=== PATIENT | male | born 1945 | race Caucasian/White ===

== ENCOUNTER → 2021-01-06 03:05 | Outpatient (CLI) | payer MEDICARE, SELFPAY ==
[2021-01-07 01:26] LABS: SARS-CoV-2 RNA PCR Positive
== END ==
PROVIDERS: PCP Family Medicine Adolescent Medicine; Visit Provider Family Medicine Adolescent Medicine
DX: U07.1 COVID-19 (principal)
CPT/HCPCS: C9803; U0003; U0005

== ENCOUNTER 2021-01-13 07:08 | Inpatient (IN) | payer MEDICARE, SELFPAY ==
[2021-01-13] VITALS (15 sets, daily range): BP systolic 167–210; BP diastolic 79–110; PULSE 75–106; RESP 18–28; TEMP 36.6–37.3; O2SAT 89–100; BMI 27.7
--- NOTE | ~2021-01-13 | US_ITS ---
EXAMINATION: US retroperitoneal duplex ltd EXAM DATE: 01/16/2021 09:06 INDICATION: Hypertension. TECHNIQUE: Multiple grayscale and Doppler images of the kidneys and renal arteries were obtained. Co rrelation is made to kidney ultrasound 01/14/2021. FINDINGS: The aorta peak systolic velocity is 96 cm/s. Renal arteries interrogated in several segments from origin to hilum. RIGHT RENAL ARTERY Proximal segment (origin): 129 cm/s. Middle segment: 122 cm/s. Distal segment (hilum): 134 cm/s. LEFT RENAL ARTERY Proximal segment (origin): 153 cm/s. Middle segment: 155 cm/s. Distal segment (hilum): 131 cm/s. IMPRESSION: 1. Renal artery Doppler velocities within normal limits. Reviewed, dictated and finalized at location G.
--- NOTE | ~2021-01-13 | XR_ITS ---
XR chest 1V portable DATE: 01/13/2021 07:53 INDICATION: Shortness of breath, weakness TECHNIQUE: Portable AP chest on 01/13/2021 at 0742 hours COMPARISON: None FINDINGS: There are patchy consolidating infiltrates scattered in both lungs including upper and lowe r lung zones. No pleural effusion or pulmonary vascular congestion or pneumothorax. Size is likely within normal limits. There is degenerative spurring of the thoracic spine. IMPRESSION: Patchy consolidating infiltrates scattered in both lungs, suggestive of bilateral Covid p neumonia Reviewed, dictated and finalized at location A. IMPRESSION: Patchy consolidating infiltrates scattered in both lungs, suggestiv e of bilateral Covid pneumonia
--- NOTE | ~2021-01-13 | US_ITS ---
EXAMINATION: US renal BI DATE: 01/14/2021 15:24 INDICATION: Acute renal insufficiency TECHNIQUE: Multiple ultrasound grayscale images of the kidneys were obtained. COMPARISON: None. FINDINGS: The right kidney measures 12.2 x 5.6 x 6.4 cm. The left kidney measures 12.2 x 5.2 x 7.5 cm. The kidn eys demonstrate normal echogenicity. There is no hydronephrosis in either kidney. No stones identifi ed. The bladder is normal. IMPRESSION: 1. Normal kidneys without hydronephrosis. Reviewed, dictated and finalized at location B.
--- NOTE | 2021-01-13 07:26 | ECG_ITS ---
Measurements Intervals [place] Rate: 96 P: 39 OK: 125 QRS: -51 QRSD: 138 T: 42 QT: 363 QTc: 461 Interpretive Statements SINUS RHYTHM FREQUENT VENTRICULAR PREMATURE COMPLEXES LEFT AXIS DEVIATION RIGHT BUNDLE BRANCH BLOCK BASELINE ARTIFACT- I, II, III, AVR ABNORMAL ECG Electronically Signed On 01-13-2021 8:13:50 CDT by Sebastien Giron D.O.
--- NOTE | 2021-01-13 07:48 | ED.SOB ---
HPI - SOB/Dyspnea General Chief Complaint: Shortness of Breath/Dyspnea Stated Complaint: SOB-COVID + Time Seen by Provider: 01/13/21 07:33 Source: EMS Mode of arrival: EMS Limitations: clinical condition History of Present Illness HPI Narrative: 75-year-old male Here for cough and shortness of breath Patient states that he has been a little sick for 2 or 3 weeks 1 week ago it was suggested that he test for Covid and that was done here and was positive on January 06 He was doing okay until last night when he became more dyspneic and his cough became more severe He has not had high fevers or productive cough or vomiting and diarrhea He has had fatigue, malaise, muscle aches He does not think that he has any particular medical problems which he is aware He completed a 2 shot Covid vaccine series MD elicited complaint: shortness of breath and cough Related Data Allergies Allergy/AdvReac Type Severity Reaction Status Date / Time No Known Allergies Allergy Unverified 02/24/14 12:38 Review of Systems Review of Systems: All systems reviewed & are unremarkable except as noted in HPI and below Constitutional: Constitutional: Reports no additional constitutional complaints, Denies chills, Reports fatigue, Reports fever(s), Denies headache(s) and Reports weakness Eyes: Eyes: Reports no additional eye complaints and Denies change in vision ENT: Denies headache(s) and Denies sore throat Cardiovascular: Cardiovascular: Denies chest pain and Denies dyspnea Respiratory: Respiratory: Reports chest congestion, Reports cough and Reports dyspnea Gastrointestinal: Gastrointestinal: Denies abdominal pain, Denies diarrhea and Denies vomiting Genitourinary: Genitourinary: Denies dysuria and Denies urinary frequency Musculoskeletal: Musculoskeletal: Reports myalgias, Denies deformity, Denies arthralgias, Denies joint swelling and Denies numbness Integumentary/Breasts: Skin/Breast: Denies rash and Denies wounds Neurologic: Reports headache(s), Denies focal weakness and Denies numbness Psychiatric: Psychiatric: Reports no additional psychiatric complaints Endocrine: Endocrine: Reports no additional endocrine complaints Hematologic/Lymphatic: Hematologic/Lymphatic: Reports no additional hematologic/lymphatic complaints Allergic/Immunologic: Allergic/Immunologic: Reports no additional allergic/immunologic complaints PMFSH Social History Social History Smoking status: Never smoker Alcohol intake: never Exam Const: General: cooperative, alert and ill appearing Orientation/consciousness: patient oriented x3 (alert) HENMT: Head: normal to inspection, normocephalic and atraumatic Ears: external ears normal General nose exam: no epistaxis Mouth: Yes moist mucous membranes Eyes: Conjunctivae: conjunctivae normal EOM: EOMs intact bilaterally Neck: Neck: normal visual inspection, supple and no JVD Resp: Effort & Inspection: normal respiratory effort, not labored and tachypneic Auscultation: rales, rhonchi, no wheezes and other (BS =) Cardio: Rate: regular rate Rhythm: regular rhythm Heart sounds: no murmurs GI: GI Palp: Yes Soft to palpation and No Tenderness to palpation present (GI) Skin: General skin exam: normal color and no rashes or lesions noted Neuro: General: patient oriented x3 (alert) and moves all extremities Speech: normal speech Extrem: General: normal to inspection and no pedal edema Psych: Affect: normal affect Course Course Emergency Course: Pulse oximetry is hypoxic on room air but satisfactory on 4 L of oxygen X-ray consistent with fairly severe bilateral Covid pneumonia He received albuterol steroids and Lovenox, as well as an initial dose of doxycycline and ceftriaxone mostly because given the lengthy prodrome of his symptoms he could have some bacterial superinfection Discussed with Dr. Schulte for hospital admission Vital Signs
[2021-01-13 08:06] LABS: Basophils Absolute Auto 0.1 K/mm3 (0.0-0.1); Basophils Percent Auto 0.4 % (0.2-1.2); Eosinophils Absolute Auto 0.2 K/mm3 (0-0.3); Eosinophils Percent Auto 1.4 % (0-4.4); Hematocrit 32.8 % (42.0-52.0); Hemoglobin 10.5 g/dL (14.0-18.0); Immature Granulocyte Absolute 0.56 K/mm3 (0.00-0.031); Immature Granulocyte Percent A 3.3 % (0-0.5); Lymphocytes Absolute Auto 0.66 K/mm3 (0.9-3.2); Lymphocytes Percent Auto 3.9 % (18.3-44.2); Mean Corpuscular Volume 93.7 fl (80-100); Mean Platelet Volume 10.8 fl (7.4-10.4); Monocytes Absolute Auto 1.8 K/mm3 (0.1-0.6); Monocytes Percent Auto 10.8 % (2.6-8.5); Neutrophils Absolute Auto 13.5 K/mm3 (1.3-6.7); Neutrophils Percent Auto 80.2 % (45.5-73.1); Platelet Count Result 448 k/mm3 (150-375); Red Cell Distribution Width 13.5 % (11.5-14.5); White Blood Count 16.9 K/mm3 (4.5-10.0)
[2021-01-13 08:18] LABS: Anion Gap 7 mmol/L (8-16); Blood Urea Nitrogen 33 mg/dL (9-20); Calcium 8.7 mg/dL (8.4-10.2); Carbon Dioxide 24 mmol/L (22-30); Chloride 109 mmol/L (98-107); Estimated CRCL calculation 29 ml/min; Estimated Glomerular Filt Rate 27; Glucose 134 mg/dL (65-110); Lactate Dehydrogenase 864 U/L (313-618); Potassium 4.3 mmol/L (3.4-5.0); Sodium 140 mmol/L (137-145)
[2021-01-13 08:19] LABS: Lactic Acid Reflex 1.4 mmol/L (0.7-2.1)
[2021-01-13 08:24] LABS: Atypical Lymphocytes Present; Hypochromasia 1+ (NORMAL); Platelet Estimate Adequate (Adequate)
[2021-01-13 08:27] LABS: NT Pro B Type Natriuretic Pept 5610 pg/mL (5-100)
[2021-01-13] MEDS: ENOXAPARIN 100 MG/ML SYRINGE 90 MG SUB-Q (08:46)
[2021-01-13] MEDS: ALBUTEROL SULFATE (*SP) AEROSOL 1 PUFF 4 PUFF INHALATION ×3 (08:50→19:55)
--- NOTE | 2021-01-13 13:00 | PM.IMHP ---
H&P: HPI History of Present Illness Date/Time: 01/13/21 13:00 Chief Complaint: Cough and shortness of breath. Narrative: This is a very pleasant 75-year-old male with insulin-dependent type 2 diabetes mellitus, hypertension, and hyperlipidemia who presented to the emergency department earlier today for evaluation of cough and shortness of breath. He has not been feeling well for approximately two weeks or so with generalized malaise, fatigue, muscle aches, decreased appetite, and intermittent low-grade fever. He tested positive for COVID 19 on 01/06/2021 though he is uncertain where he would have been exposed as typically he and his are very careful when they go outside of the home and are compliant with wearing masks and avoiding crowds. However several weeks ago he went to a stock car race and he is wondering if he may have been exposed there. In any regard, he reports increasingly weakness as the days have gone on and his biggest complaint is that of frequent, severe coughing jags as well as shortness of breath. He has been taking [id number] cold and flu medications without much benefit. He has not taken any other medications and did not receive monoclonal antibodies. On arrival to the emergency department his SpO2 was 89% on room air and a chest x-ray showed bilateral consolidating infiltrates suggestive of bilateral COVID pneumonia, and he is being admitted in this setting. He denies high fever, headache, sinus congestion, rhinorrhea, otalgia, odynophagia, exertional chest pain, pleuritic pain, palpitations, vomiting, and diarrhea. Of note the patient and his both received the [employer] COVID vaccination series in September 2020. Review of Systems Review of Systems: Twelve systems were reviewed with pertinent positives and negatives as per HPI. He denies dysphagia and concerns for aspiration. No orthopnea, PND, or lower extremity edema. He has not been checking his glucose because he has just not been feeling well. His appetite has been very poor though he denies overt nausea. He denies anosmia and dysgeusia. He has been trying to drink Ensure at the very least. He has not noticed a significant change in urine output but is urine has been a bit darker than usual. He denies concerns for urinary retention. Except as documented, all other systems were reviewed and are negative. [facility] Past Medical History Medical History (Updated 01/13/21 @ 16:04 by Sharon Doan PA-C) Hyperlipidemia Hypertension Insulin dependent type 2 diabetes mellitus Surgical History Surgical History (Updated 01/13/21 @ 15:58 by Sharon Doan PA-C) History of appendectomy History of colonoscopy (08/04/15) Revealed internal hemorrhoids. Family History Family History (Updated 01/13/21 @ 15:58 by Sharon Doan PA-C) Other Diabetes mellitus Hypertension Social History Social History (Updated 01/13/21 @ 16:19 by Sharon Doan PA-C) Social History: The patient is and lives with his in [place]. 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 Lifelong nonsmoker. No alcohol or illicit substance use. He designates his , Denise Chen, as his surrogate decision maker. Meds Home Medications and Allergies Allergies Allergy/AdvReac Type Severity Reaction Status Date / Time No Known Allergies Allergy Unverified 02/24/14 12:38 Vital Signs Vital Signs - 24 hr 01/13/21 07:12 01/13/21 07:15 01/13/21 07:16 Temperature 99.1 F Pulse Rate 101 H 103 H Respiratory Rate 28 H Blood Pressure 167/100 H Pulse Oximetry 89 L 95 01/13/21 09:22 01/13/21 10:41 01/13/21 13:01 Temperature 98.8 F Pulse Rate 88 90 80 Respiratory Rate 26 H 28 H 18 Blood Pressure 196/84 H 185/81 H 194/92 H Pulse Oximetry 98 100 99 01/13/21 15:04 Temperature Pulse Rate 76 Respiratory Rate 20 Blood Pressure 193/91 H Pulse Oximetry 100 Exam Narrative: General: Moderately ill-appearing elderly m
[2021-01-13] MEDS: LACTATED RINGERS 1,000 ML 50 ML IV CONT (13:17)
[2021-01-13 16:50] LABS: Prothrombin Time 12.7 Seconds (11.1-14.7)
[2021-01-13 16:57] LABS: Alanine Aminotransferase 55 U/L (4-50); Anion Gap 11 mmol/L (8-16); Blood Urea Nitrogen 34 mg/dL (9-20); Calcium 8.9 mg/dL (8.4-10.2); Carbon Dioxide 23 mmol/L (22-30); Chloride 105 mmol/L (98-107); Estimated CRCL calculation 29 ml/min; Estimated Glomerular Filt Rate 27; Glucose 241 mg/dL (65-110); Potassium 4.6 mmol/L (3.4-5.0); Sodium 139 mmol/L (137-145)
[2021-01-13 17:00] LABS: Alanine Aminotransferase 54 U/L (4-50); Albumin Level 3.4 g/dL (3.5-5.1); Alkaline Phosphatase 152 U/L (38-126); Aspartate Amino Transferase 44 U/L (17-59); Bilirubin,Total 0.4 mg/dL (0.2-1.3)
[2021-01-13] MEDS: hydrALAZINE HCL 20 MG/ML VIAL 10 MG IV PUSH (17:01)
[2021-01-13 17:11] LABS: Glucose Point of Care 236 mg/dl (65-105)
[2021-01-13 17:12] LABS: CRP 22.2 mg/dL (<1.0)
[2021-01-13] MEDS: INSULIN ASPART (*BKC) 100 UNITS/ML SUB-Q (17:24)
[2021-01-13 17:52] LABS: Procalcitonin 0.3 ng/mL
[2021-01-13 18:26] LABS: Creatine Kinase 244 U/L (55-170)
[2021-01-13] MEDS: METOPROLOL TARTRATE 50 MG TAB PO (18:27)
[2021-01-13 21:02] LABS: Ferritin > 2000.00 ng/mL (11.1-264)
[2021-01-13] MEDS: guaiFENesin 600 MG/DEXTROMETHORPHAN 30 MG SR TAB 12 HR 1 TAB PO (21:22)
[2021-01-13 21:43] LABS: Glucose Point of Care 337 mg/dl (65-105)
[2021-01-13] MEDS: INSULIN ASPART (*BKC) 100 UNITS/ML 6 UNITS SUB-Q (22:57)
[2021-01-13] MEDS: amLODIPine BESYLATE 5 MG TABLET PO (22:57)
[2021-01-13 23:08] LABS: Sodium Urine Random 74 meq/L
[2021-01-13 23:12] LABS: Urea Random Urine 635 MG/DL
[2021-01-13 23:27] LABS: Creatinine Urine 137.5 mg/dL
[2021-01-14] VITALS (13 sets, daily range): BP systolic 159–225; BP diastolic 80–113; PULSE 63–98; RESP 18–21; TEMP 36.2–36.7; O2SAT 91–99
[2021-01-14 06:45] LABS: Hematocrit 30.1 % (42.0-52.0); Hemoglobin 9.6 g/dL (14.0-18.0); Mean Corpuscular HGB Conc 31.9 g/dl (32-36); Mean Corpuscular Hemoglobin 29.5 pg (26-34); Mean Corpuscular Volume 92.6 fl (80-100); Mean Platelet Volume 11.3 fl (7.4-10.4); Platelet Count Result 479 k/mm3 (150-375); Red Blood Count 3.25 M/mm3 (4.6-6.20); Red Cell Distribution Width 13.4 % (11.5-14.5); White Blood Count 12.1 K/mm3 (4.5-10.0)
[2021-01-14 06:59] LABS: Alanine Aminotransferase 45 U/L (4-50); Albumin Level 2.9 g/dL (3.5-5.1); Alkaline Phosphatase 120 U/L (38-126); Anion Gap 5 mmol/L (8-16); Aspartate Amino Transferase 37 U/L (17-59); Bilirubin,Total 0.3 mg/dL (0.2-1.3); Blood Urea Nitrogen 39 mg/dL (9-20); Calcium 8.4 mg/dL (8.4-10.2); Carbon Dioxide 25 mmol/L (22-30); Chloride 108 mmol/L (98-107); Estimated CRCL calculation 29 ml/min; Estimated Glomerular Filt Rate 28; Glucose 226 mg/dL (65-110); Magnesium 1.8 mg/dL (1.6-2.3); Potassium 4.6 mmol/L (3.4-5.0); Sodium 138 mmol/L (137-145)
[2021-01-14] MEDS: LACTATED RINGERS 1,000 ML 100 ML IV CONT ×2 (07:11→14:41)
[2021-01-14 07:24] LABS: Hemoglobin A1C 8.7 % (<5.7)
[2021-01-14 08:10] LABS: Glucose Point of Care 218 mg/dl (65-105)
[2021-01-14] MEDS: INSULIN ASPART (*BKC) 100 UNITS/ML SUB-Q ×3 (08:22→17:21)
[2021-01-14] MEDS: INSULIN GLARGINE (*BKC) 100 UNITS/ML 50 UNITS SUB-Q (08:22)
[2021-01-14] MEDS: ENOXAPARIN 40 MG/0.4 ML SYRINGE SUB-Q (08:24)
[2021-01-14] MEDS: METOPROLOL TARTRATE 50 MG TAB PO ×2 (08:25→22:00)
[2021-01-14] MEDS: ATORVASTATIN 20 MG TABLET PO (08:25)
[2021-01-14] MEDS: guaiFENesin 600 MG/DEXTROMETHORPHAN 30 MG SR TAB 12 HR 1 TAB PO ×2 (08:25→22:12)
[2021-01-14] MEDS: ALBUTEROL SULFATE (*SP) AEROSOL 1 PUFF 4 PUFF INHALATION ×3 (08:35→19:42)
--- NOTE | 2021-01-14 11:32 | P.PNIM_ITS ---
Progress Note: A&P Assessment and Plan (1) Acute respiratory failure with hypoxia: Code(s): J96.01 - Acute respiratory failure with hypoxia Status: Acute Assessment and Plan: Secondary to COVID-19 pneumonia * Noted to be hypoxic at 89% on presentation. He was started on 3 L supplemental O2 * Has been weaned to 1 L and O2 sats are remaining stable * Continue with supplemental O2 as needed. Goal saturation 92% or above. Wean to goal. (2) COVID-19: Code(s): U07.1 - COVID-19 Status: Acute Assessment and Plan: Positive COVID test on 01/06/2021. CXR showed bilateral pneumonia * Initiate IV dexamethasone * He is not a candidate for remdesivir at this time due to decreased GFR. * Supportive care to include bronchodilators, expectorants, antipyretics, incentive spirometry * Supplemental O2 as described above * Trend acute phase reactants * Continue isolation precautions * He completed Pfizer vaccination in August 2020 (3) Bilateral pneumonia: Code(s): J18.9 - Pneumonia, unspecified organism Status: Acute Assessment and Plan: Given duration of symptoms and leukocytosis, continent bacterial pneumonia con sidered * Continue IV ceftriaxone and doxycycline * Sputum culture has been ordered, though cough is nonproductive * Blood cultures pending * Leukocytosis improving (4) Acute kidney injury: Code(s): N17.9 - Acute kidney failure, unspecified Status: Acute Assessment and Plan: Creatinine elevated at 2.4 on presentation. No prior labs to establish baseline. * Likely pre renal given dehydration from poor p.o. intake. He is being cautiously rehydrated with IV fluids given his bilateral pneumonia * No evidence of urinary retention on bladder scan * Lisinopril and metformin on hold. Avoid additional nephrotoxic medications * Monitor strict intake and output * Minimal improvement in creatinine following gentle IV fluid rehydration. Will obtain renal ultrasound for further evaluation * Consider nephrology consultation if no further improvement (5) Insulin dependent type 2 diabetes mellitus: Code(s): E11.9 - Type 2 diabetes mellitus without complications; Z79.4 - prison (current) use of insulin Status: Acute Assessment and Plan: A1c is 8.7. * Continue Accu-Cheks, sliding scale insulin, and hypoglycemic protocol * Metformin a hold as above due to IRASEMA * Continue home Lantus, 50 units * Monitor blood sugar closely given IV steroids, adjust regimen as needed (6) Hypertension: Code(s): I10 - Essential (primary) hypertension Status: Acute Assessment and Plan: Blood pressures have been quite elevated, up to 225/100. Blood pressures have been quite fluctuant. Last BP was 159/82 * He reports feeling quite anxious and this may be contributing * He was noted to be orthostatic today, though he is asymptomatic. * Repeat orthostatics this afternoon * Continue with metoprolol tartrate 50 mg b.i.d. * Lisinopril on hold due to IRASEMA * He will likely need additional antihypertensive agent. Will reassess this afternoon following repeat orthostatic blood pressures (7) Hyperlipidemia: Code(s): E78.5 - Hyperlipidemia, unspecified Status: Acute Assessment and Plan: LFTs reviewed and are within normal limits * Continue atorvastatin Subjective Date/time seen: 01/14/21 11:32 Interval history: Date of service: 01/14/2021 Vinayak Chen is a 75-year-old male
--- NOTE | 2021-01-14 11:32 | PM.IMPN ---
Progress Note: A&P Assessment and Plan (1) Acute respiratory failure with hypoxia: Code(s): J96.01 - Acute respiratory failure with hypoxia Status: Acute Assessment and Plan: Secondary to COVID-19 pneumonia Noted to be hypoxic at 89% on presentation. He was started on 3 L supplemental O2 Has been weaned to 1 L and O2 sats are remaining stable Continue with supplemental O2 as needed. Goal saturation 92% or above. Wean to goal. (2) COVID-19: Code(s): U07.1 - COVID-19 Status: Acute Assessment and Plan: Positive COVID test on 01/06/2021. CXR showed bilateral pneumonia Initiate IV dexamethasone He is not a candidate for remdesivir at this time due to decreased GFR. Supportive care to include bronchodilators, expectorants, antipyretics, incentive spirometry Supplemental O2 as described above Trend acute phase reactants Continue isolation precautions He completed Pfizer vaccination in August 2020 (3) Bilateral pneumonia: Code(s): J18.9 - Pneumonia, unspecified organism Status: Acute Assessment and Plan: Given duration of symptoms and leukocytosis, continent bacterial pneumonia considered Continue IV ceftriaxone and doxycycline Sputum culture has been ordered, though cough is nonproductive Blood cultures pending Leukocytosis improving (4) Acute kidney injury: Code(s): N17.9 - Acute kidney failure, unspecified Status: Acute Assessment and Plan: Creatinine elevated at 2.4 on presentation. No prior labs to establish baseline. Likely pre renal given dehydration from poor p.o. intake. He is being cautiously rehydrated with IV fluids given his bilateral pneumonia No evidence of urinary retention on bladder scan Lisinopril and metformin on hold. Avoid additional nephrotoxic medications Monitor strict intake and output Minimal improvement in creatinine following gentle IV fluid rehydration. 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 Continue Accu-Cheks, sliding scale insulin, and hypoglycemic protocol Metformin a hold as above due to IRASEMA Continue home Lantus, 50 units Monitor blood sugar closely given IV steroids, adjust regimen as needed (6) Hypertension: Code(s): I10 - Essential (primary) hypertension Status: Acute Assessment and Plan: Blood pressures have been quite elevated, up to 225/100. Blood pressures have been quite fluctuant. Last BP was 159/82 He reports feeling quite anxious and this may be contributing He was noted to be orthostatic today, though he is asymptomatic. Repeat orthostatics this afternoon Continue with metoprolol tartrate 50 mg b.i.d. Lisinopril on hold due to IRASEMA He will likely need additional antihypertensive agent. Will reassess this afternoon following repeat orthostatic blood pressures (7) Hyperlipidemia: Code(s): E78.5 - Hyperlipidemia, unspecified Status: Acute Assessment and Plan: LFTs reviewed and are within normal limits Continue atorvastatin Subjective Date/time seen: 01/14/21 11:32 Interval history: Date of service: 01/14/2021 Vinayak Chen is a 75-year-old male with a history of hypertension, type 2 diabetes mellitus, hyperlipidemia who is seen in follow-up for COVID-19 pneumonia. He is not noticing any improvement today. He continues to complain of persistent cough. Reports his cough is dry. He has no sputum production. He reports this cough has been continuing for 2 weeks. He has tried multiple hxhk-xij-kzhyjhn cough remedies with no improvement whatsoever. He also endorses NAIR. Denies conversational dyspnea. Denies orthopnea
[2021-01-14] MEDS: polyethylene glycoL 3350 17 GM POWD.PACK PO (11:38)
[2021-01-14 12:17] LABS: Glucose Point of Care 250 mg/dl (65-105)
[2021-01-14] MEDS: DEXAMETHASONE SOD PHOS INJ 4 MG/ML VIAL 6 MG IV PUSH (12:46)
--- NOTE | 2021-01-14 13:12 | PCRCNOTE ---
Window of time for administration has passed. See next scheduled administration.
[2021-01-14] MEDS: amLODIPine BESYLATE 5 MG TABLET PO (17:21)
[2021-01-14 17:56] LABS: Glucose Point of Care 278 mg/dl (65-105)
[2021-01-14] MEDS: DOCUSATE SODIUM 100 MG CAPSULE PO (22:12)
[2021-01-14 22:24] LABS: Glucose Point of Care 429 mg/dl (65-105)
--- NOTE | 2021-01-14 22:37 | PC.NURSE ---
Patient Blood glucose of 429. Call place to Sharon Doan. Telephone order read back of 8 units of Novolog to be administered
[2021-01-14] MEDS: INSULIN ASPART (*BKC) 100 UNITS/ML 8 UNITS SUB-Q (22:52)
[2021-01-15] VITALS (11 sets, daily range): BP systolic 148–191; BP diastolic 66–95; PULSE 62–100; RESP 16–20; TEMP 35.8–37.2; O2SAT 90–98
[2021-01-15] MEDS: hydrALAZINE HCL 20 MG/ML VIAL 10 MG IV PUSH (01:04)
[2021-01-15] MEDS: BENZOCAINE/MENTHOL (*BKC) 18 EA LOZENGE 1 LOZENGE PO ×4 (01:04→21:37)
[2021-01-15] MEDS: LACTATED RINGERS 1,000 ML 100 ML IV CONT ×2 (01:10→12:25)
[2021-01-15 06:42] LABS: Hematocrit 29.4 % (42.0-52.0); Hemoglobin 9.6 g/dL (14.0-18.0); Mean Corpuscular HGB Conc 32.7 g/dl (32-36); Mean Corpuscular Hemoglobin 29.7 pg (26-34); Mean Platelet Volume 10.9 fl (7.4-10.4); Platelet Count Result 620 k/mm3 (150-375); Red Blood Count 3.23 M/mm3 (4.6-6.20); Red Cell Distribution Width 13.3 % (11.5-14.5); White Blood Count 13.1 K/mm3 (4.5-10.0)
[2021-01-15 06:57] LABS: Alanine Aminotransferase 51 U/L (4-50); Alkaline Phosphatase 118 U/L (38-126); Anion Gap 7 mmol/L (8-16); Aspartate Amino Transferase 46 U/L (17-59); Bilirubin,Total 0.5 mg/dL (0.2-1.3); Blood Urea Nitrogen 49 mg/dL (9-20); CRP 3.8 mg/dL (<1.0); Calcium 8.5 mg/dL (8.4-10.2); Carbon Dioxide 24 mmol/L (22-30); Chloride 105 mmol/L (98-107); Estimated CRCL calculation 33 ml/min; Estimated Glomerular Filt Rate 33; Glucose 250 mg/dL (65-110); Lactate Dehydrogenase 859 U/L (313-618); Potassium 4.8 mmol/L (3.4-5.0); Sodium 136 mmol/L (137-145)
[2021-01-15] MEDS: INSULIN ASPART (*BKC) 100 UNITS/ML SUB-Q ×6 (07:58→17:05)
[2021-01-15 07:59] LABS: Glucose Point of Care 219 mg/dl (65-105)
[2021-01-15] MEDS: INSULIN GLARGINE (*BKC) 100 UNITS/ML 50 UNITS SUB-Q (08:00)
[2021-01-15] MEDS: ENOXAPARIN 40 MG/0.4 ML SYRINGE SUB-Q (08:05)
[2021-01-15] MEDS: DEXAMETHASONE SOD PHOS INJ 4 MG/ML VIAL 6 MG IV PUSH (08:06)
[2021-01-15] MEDS: guaiFENesin 600 MG/DEXTROMETHORPHAN 30 MG SR TAB 12 HR 1 TAB PO ×2 (08:07→20:34)
[2021-01-15] MEDS: ATORVASTATIN 20 MG TABLET PO (08:07)
[2021-01-15] MEDS: DOCUSATE SODIUM 100 MG CAPSULE PO ×2 (08:07→20:35)
[2021-01-15] MEDS: METOPROLOL TARTRATE 50 MG TAB PO ×2 (08:08→20:36)
[2021-01-15] MEDS: ALBUTEROL SULFATE (*SP) AEROSOL 1 PUFF 4 PUFF INHALATION ×4 (08:27→22:07)
[2021-01-15] MEDS: amLODIPine BESYLATE 5 MG TABLET 10 MG PO (09:03)
[2021-01-15 12:05] LABS: Glucose Point of Care 303 mg/dl (65-105)
--- NOTE | 2021-01-15 13:47 | P.PNIM_ITS ---
Progress Note: A&P Assessment and Plan (1) Acute respiratory failure with hypoxia: Code(s): J96.01 - Acute respiratory failure with hypoxia Status: Acute Assessment and Plan: Secondary to COVID-19 pneumonia * Noted to be hypoxic at 89% on presentation. He was started on 3 L supplemental O2 but has been weaned to room air and is maintaining adequate O2 saturations * Continue with supplemental O2 as needed. Goal saturation 92% or above. Wean to goal. (2) COVID-19: Code(s): U07.1 - COVID-19 Status: Acute Assessment and Plan: Positive COVID test on 01/06/2021. CXR showed bilateral pneumonia * Continue IV dexamethasone, started on 01/14/2021 * Remdesivir not initiated on presentation due to low GFR. Not indicated at this time as he has no O2 requirements * Supportive care to include bronchodilators, expectorants, antipyretics, incentive spirometry * Supplemental O2 as described above * Trend acute phase reactants * Continue isolation precautions * He completed Pfizer vaccination in August 2020 (3) Bilateral pneumonia: Code(s): J18.9 - Pneumonia, unspecified organism Status: Acute Assessment and Plan: Given duration of symptoms and leukocytosis, concomitant bacterial pneumonia considered * Continue IV ceftriaxone and doxycycline * Sputum culture is pending * Blood cultures pending; preliminary cultures with no growth today * Leukocytosis improved, however has increased again with addition of IV steroids (4) Acute on chronic kidney failure: Code(s): N17.9 - Acute kidney failure, unspecified; N18.9 - Chronic kidney disease, unspecified Status: Acute Assessment and Plan: Creatinine elevated at 2.4 on presentation. He reported no history of CKD, but I spoke with his PCP office today and his last creatinine in October 2019 was 2.18 * Likely pre renal given dehydration from poor p.o. intake. He has been cautiously rehydrated with IV fluids given his bilateral pneumonia * No evidence of urinary retention on bladder scan * Renal ultrasound showed normal kidneys without hydronephrosis * After speaking with PCP office today, it appears he is back to his baseline renal function. Creatinine is 2.0 today. Because of this, will discontinue IV fluids as he has been adequately rehydrated and is tolerating p.o. intake. * Continue to monitor renal function closely. Renally dose medications and avoid nephrotoxins (5) Insulin dependent type 2 diabetes mellitus: Code(s): E11.9 - Type 2 diabetes mellitus without complications; Z79.4 - ocean transportation intermediary (current) use of insulin Status: Acute Assessment and Plan: A1c is 8.7. Blood sugars have been elevated above target secondary to IV steroids * Continue Accu-Cheks, sliding scale insulin, and hypoglycemic protocol * Continue home Lantus, 50 units * Added 5 units Novolog with meals for improved glycemic control while on steroids * Monitor blood sugar closely given IV steroids, adjust regimen as needed (6) Hypertension: Code(s): I10 - Essential (primary) hypertension Status: Acute Assessment and Plan: Blood pressures have been quite elevated, up to 225/100 and have been quite fluctuant. Overall, slowly improving. Last BP 168/78 * He was noted to be orthostatic yesterday though remained asymptomatic. Continue to monitor orthostatic vital signs * Continue with metoprolol tartrate 50 mg b.i.d. * Amlodipine increased to 10 mg * Lisinopril was on hold due to IRASEMA, but will resume at this point as
--- NOTE | 2021-01-15 13:47 | PM.IMPN ---
Progress Note: A&P Assessment and Plan (1) Acute respiratory failure with hypoxia: Code(s): J96.01 - Acute respiratory failure with hypoxia Status: Acute Assessment and Plan: Secondary to COVID-19 pneumonia Noted to be hypoxic at 89% on presentation. He was started on 3 L supplemental O2 but has been weaned to room air and is maintaining adequate O2 saturations Continue with supplemental O2 as needed. Goal saturation 92% or above. Wean to goal. (2) COVID-19: Code(s): U07.1 - COVID-19 Status: Acute Assessment and Plan: Positive COVID test on 01/06/2021. CXR showed bilateral pneumonia Continue IV dexamethasone, started on 01/14/2021 Remdesivir not initiated on presentation due to low GFR. Not indicated at this time as he has no O2 requirements Supportive care to include bronchodilators, expectorants, antipyretics, incentive spirometry Supplemental O2 as described above Trend acute phase reactants Continue isolation precautions He completed Pfizer vaccination in August 2020 (3) Bilateral pneumonia: Code(s): J18.9 - Pneumonia, unspecified organism Status: Acute Assessment and Plan: Given duration of symptoms and leukocytosis, concomitant bacterial pneumonia considered Continue IV ceftriaxone and doxycycline Sputum culture is pending Blood cultures pending; preliminary cultures with no growth today Leukocytosis improved, however has increased again with addition of IV steroids (4) Acute on chronic kidney failure: Code(s): N17.9 - Acute kidney failure, unspecified; N18.9 - Chronic kidney disease, unspecified Status: Acute Assessment and Plan: Creatinine elevated at 2.4 on presentation. He reported no history of CKD, but I spoke with his PCP office today and his last creatinine in October 2019 was 2.18 Likely pre renal given dehydration from poor p.o. intake. He has been cautiously rehydrated with IV fluids given his bilateral pneumonia No evidence of urinary retention on bladder scan Renal ultrasound showed normal kidneys without hydronephrosis After speaking with PCP office today, it appears he is back to his baseline renal function. Creatinine is 2.0 today. Because of this, will discontinue IV fluids as he has been adequately rehydrated and is tolerating p.o. intake. Continue to monitor renal function closely. 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 Blood sugars have been elevated above target secondary to IV steroids Continue Accu-Cheks, sliding scale insulin, and hypoglycemic protocol Continue home Lantus, 50 units Added 5 units Novolog with meals for improved glycemic control while on steroids Monitor blood sugar closely given IV steroids, adjust regimen as needed (6) Hypertension: Code(s): I10 - Essential (primary) hypertension Status: Acute Assessment and Plan: Blood pressures have been quite elevated, up to 225/100 and have been quite fluctuant. Overall, slowly improving. Last BP 168/78 He was noted to be orthostatic yesterday though remained asymptomatic. Continue to monitor orthostatic vital signs Continue with metoprolol tartrate 50 mg b.i.d. Amlodipine increased to 10 mg Lisinopril was on hold due to IRASEMA, but will resume at this point as he is back to baseline Continue to monitor blood pressure trends closely and adjust medication regimen as needed Renal duplex pending (7) Hyperlipidemia: Code(s): E78.5 - Hyperlipidemia, unspecified Status: Acute Assessment and Plan: LFTs reviewed and are within normal limits Continue atorvastatin Subjective Date/time seen: 01/15/21 13:47 Interval history: Date of service: 01/15/2021
[2021-01-15 17:08] LABS: Glucose Point of Care 351 mg/dl (65-105)
[2021-01-15 20:55] LABS: Glucose Point of Care 387 mg/dl (65-105)
[2021-01-15] MEDS: INSULIN ASPART (*BKC) 100 UNITS/ML 8 UNITS SUB-Q (21:31)
[2021-01-16] VITALS (16 sets, daily range): BP systolic 144–220; BP diastolic 64–98; PULSE 66–92; RESP 18–20; TEMP 36.2–37; O2SAT 93–99
[2021-01-16 06:18] LABS: Hematocrit 27.8 % (42.0-52.0); Hemoglobin 9.1 g/dL (14.0-18.0); Mean Corpuscular HGB Conc 32.7 g/dl (32-36); Mean Corpuscular Hemoglobin 29.5 pg (26-34); Mean Corpuscular Volume 90.3 fl (80-100); Mean Platelet Volume 11.6 fl (7.4-10.4); Platelet Count Result 513 k/mm3 (150-375); Red Blood Count 3.08 M/mm3 (4.6-6.20); White Blood Count 12.8 K/mm3 (4.5-10.0)
[2021-01-16 06:36] LABS: Alanine Aminotransferase 44 U/L (4-50); Albumin Level 2.8 g/dL (3.5-5.1); Alkaline Phosphatase 93 U/L (38-126); Anion Gap 5 mmol/L (8-16); Aspartate Amino Transferase 36 U/L (17-59); Bilirubin,Total 0.4 mg/dL (0.2-1.3); Blood Urea Nitrogen 49 mg/dL (9-20); Calcium 8.6 mg/dL (8.4-10.2); Carbon Dioxide 22 mmol/L (22-30); Chloride 106 mmol/L (98-107); Estimated CRCL calculation 32 ml/min; Estimated Glomerular Filt Rate 31; Glucose 285 mg/dL (65-110); Lactate Dehydrogenase 751 U/L (313-618); Potassium 4.3 mmol/L (3.4-5.0); Sodium 133 mmol/L (137-145)
[2021-01-16] MEDS: hydrALAZINE HCL 20 MG/ML VIAL 10 MG IV PUSH ×2 (06:48→10:35)
[2021-01-16] MEDS: ALBUTEROL SULFATE (*SP) AEROSOL 1 PUFF 4 PUFF INHALATION ×4 (08:10→20:48)
[2021-01-16] MEDS: INSULIN ASPART (*BKC) 100 UNITS/ML SUB-Q ×4 (08:33→18:11)
[2021-01-16] MEDS: METOPROLOL TARTRATE 50 MG TAB PO ×2 (08:35→20:22)
[2021-01-16] MEDS: lisinopriL 10 MG TABLET 30 MG PO (08:35)
[2021-01-16] MEDS: ATORVASTATIN 20 MG TABLET PO (08:36)
[2021-01-16] MEDS: ENOXAPARIN 40 MG/0.4 ML SYRINGE SUB-Q (08:36)
[2021-01-16] MEDS: INSULIN GLARGINE (*BKC) 100 UNITS/ML 50 UNITS SUB-Q (08:36)
[2021-01-16] MEDS: amLODIPine BESYLATE 5 MG TABLET 10 MG PO (08:36)
[2021-01-16] MEDS: guaiFENesin 600 MG/DEXTROMETHORPHAN 30 MG SR TAB 12 HR 1 TAB PO (08:36)
[2021-01-16] MEDS: DOCUSATE SODIUM 100 MG CAPSULE PO ×2 (08:36→20:20)
[2021-01-16] MEDS: DEXAMETHASONE SOD PHOS INJ 4 MG/ML VIAL 6 MG IV PUSH (08:36)
[2021-01-16] MEDS: polyethylene glycoL 3350 17 GM POWD.PACK PO (08:41)
[2021-01-16 08:42] LABS: Glucose Point of Care 247 mg/dl (65-105)
[2021-01-16 12:05] LABS: Glucose Point of Care 178 mg/dl (65-105)
[2021-01-16] MEDS: BENZOCAINE/MENTHOL (*BKC) 18 EA LOZENGE 1 LOZENGE PO (14:20)
[2021-01-16] MEDS: hydrALAZINE HCL 25 MG TABLET PO ×3 (14:20→20:21)
--- NOTE | 2021-01-16 15:54 | P.PNIM_ITS ---
Progress Note: A&P Assessment and Plan (1) Acute respiratory failure with hypoxia: Code(s): J96.01 - Acute respiratory failure with hypoxia Status: Acute Assessment and Plan: Secondary to COVID-19 pneumonia * Noted to be hypoxic at 89% on presentation. He was started on 3 L supplemental O2 but has been weaned to room air and is maintaining adequate O2 saturations * Continue with supplemental O2 as needed. Goal saturation 92% or above. Wean to goal. (2) COVID-19: Code(s): U07.1 - COVID-19 Status: Acute Assessment and Plan: Positive COVID test on 01/06/2021. CXR showed bilateral pneumonia * Continue IV dexamethasone, started on 01/14/2021 * Remdesivir not initiated on presentation due to low GFR. Not indicated at this time as he has no O2 requirements * Supportive care to include bronchodilators, expectorants, antipyretics, incentive spirometry * Supplemental O2 as described above * Trend acute phase reactants * Continue isolation precautions * He completed Pfizer vaccination in August 2020 (3) Bilateral pneumonia: Code(s): J18.9 - Pneumonia, unspecified organism Status: Acute Assessment and Plan: Given duration of symptoms and leukocytosis, concomitant bacterial pneumonia considered * Continue IV ceftriaxone and doxycycline * Sputum culture with growth of normal oropharyngeal william * Blood cultures pending; preliminary cultures with no growth * Leukocytosis improved, however has increased again with addition of IV steroids (4) Acute on chronic kidney failure: Code(s): N17.9 - Acute kidney failure, unspecified; N18.9 - Chronic kidney disease, unspecified Status: Acute Assessment and Plan: Creatinine elevated at 2.4 on presentation. He reported no history of CKD, spoke with PCP and his last creatinine in October 2019 was 2.18 * Likely pre renal given dehydration from poor p.o. intake. He has been cautiously rehydrated with IV fluids given his bilateral pneumonia * No evidence of urinary retention on bladder scan * Renal ultrasound showed normal kidneys without hydronephrosis * After speaking with PCP office, it appears he is back to his baseline renal function. Creatinine is 2.0. Because of this, will discontinue IV fluids as he has been adequately rehydrated and is tolerating p.o. intake. * Continue to monitor renal function closely. Renally dose medications and avoid nephrotoxins (5) Insulin dependent type 2 diabetes mellitus: Code(s): E11.9 - Type 2 diabetes mellitus without complications; Z79.4 - [facility] (current) use of insulin Status: Acute Assessment and Plan: A1c is 8.7. Blood sugars have been elevated above target secondary to IV steroids * Continue Accu-Cheks, sliding scale insulin, and hypoglycemic protocol * Continue home Lantus, 50 units * Added 5 units Novolog with meals for improved glycemic control while on steroids. Will increase NovoLog to 10 units with meals * Monitor blood sugar closely given IV steroids, adjust regimen as needed (6) Hypertension: Code(s): I10 - Essential (primary) hypertension Status: Acute Assessment and Plan: Blood pressures have been quite elevated, up to 225/100 and have been quite fluctuant. Overall, slowly improving. Last BP 168/78 * He was noted to be orthostatic yesterday though remained asymptomatic. Continue to monitor orthostatic vital signs * Continue with metoprolol tartrate 50 mg b.i.d. * Amlodipine increased to 10 mg * Lisinopril was on hold due to IRASEMA, b
--- NOTE | 2021-01-16 15:54 | PM.IMPN ---
Progress Note: A&P Assessment and Plan (1) Acute respiratory failure with hypoxia: Code(s): J96.01 - Acute respiratory failure with hypoxia Status: Acute Assessment and Plan: Secondary to COVID-19 pneumonia Noted to be hypoxic at 89% on presentation. He was started on 3 L supplemental O2 but has been weaned to room air and is maintaining adequate O2 saturations Continue with supplemental O2 as needed. Goal saturation 92% or above. Wean to goal. (2) COVID-19: Code(s): U07.1 - COVID-19 Status: Acute Assessment and Plan: Positive COVID test on 01/06/2021. CXR showed bilateral pneumonia Continue IV dexamethasone, started on 01/14/2021 Remdesivir not initiated on presentation due to low GFR. Not indicated at this time as he has no O2 requirements Supportive care to include bronchodilators, expectorants, antipyretics, incentive spirometry Supplemental O2 as described above Trend acute phase reactants Continue isolation precautions He completed Pfizer vaccination in August 2020 (3) Bilateral pneumonia: Code(s): J18.9 - Pneumonia, unspecified organism Status: Acute Assessment and Plan: Given duration of symptoms and leukocytosis, concomitant bacterial pneumonia considered Continue IV ceftriaxone and doxycycline Sputum culture with growth of normal oropharyngeal william Blood cultures pending; preliminary cultures with no growth Leukocytosis improved, however has increased again with addition of IV steroids (4) Acute on chronic kidney failure: Code(s): N17.9 - Acute kidney failure, unspecified; N18.9 - Chronic kidney disease, unspecified Status: Acute Assessment and Plan: Creatinine elevated at 2.4 on presentation. He reported no history of CKD, spoke with PCP and his last creatinine in October 2019 was 2.18 Likely pre renal given dehydration from poor p.o. intake. He has been cautiously rehydrated with IV fluids given his bilateral pneumonia No evidence of urinary retention on bladder scan Renal ultrasound showed normal kidneys without hydronephrosis After speaking with PCP office, it appears he is back to his baseline renal function. Creatinine is 2.0. Because of this, will discontinue IV fluids as he has been adequately rehydrated and is tolerating p.o. intake. Continue to monitor renal function closely. Renally dose medications and avoid nephrotoxins (5) Insulin dependent type 2 diabetes mellitus: Code(s): E11.9 - Type 2 diabetes mellitus without complications; Z79.4 - [facility] (current) use of insulin Status: Acute Assessment and Plan: A1c is 8.7. Blood sugars have been elevated above target secondary to IV steroids Continue Accu-Cheks, sliding scale insulin, and hypoglycemic protocol Continue home Lantus, 50 units Added 5 units Novolog with meals for improved glycemic control while on steroids. Will increase NovoLog to 10 units with meals Monitor blood sugar closely given IV steroids, adjust regimen as needed (6) Hypertension: Code(s): I10 - Essential (primary) hypertension Status: Acute Assessment and Plan: Blood pressures have been quite elevated, up to 225/100 and have been quite fluctuant. Overall, slowly improving. Last BP 168/78 He was noted to be orthostatic yesterday though remained asymptomatic. Continue to monitor orthostatic vital signs Continue with metoprolol tartrate 50 mg b.i.d. Amlodipine increased to 10 mg Lisinopril was on hold due to IRASEMA, but will resume at this point as he is back to baseline Continue to monitor blood pressure trends closely and adjust medication regimen as needed Renal duplex pending Add hydralazine 25 mg q.i.d. Continue IV p.r.n. adjust the dose as needed Renal arterial duplex with the normal limits (7) Hyperlipidemia: Code(s): E78.5 - Hyperlipidemia, unspecified Status: Acute Assessment and Plan: LFTs reviewed
[2021-01-16 17:01] LABS: Glucose Point of Care 314 mg/dl (65-105)
[2021-01-16] MEDS: INSULIN ASPART (*BKC) 100 UNITS/ML 10 UNITS SUB-Q (18:10)
[2021-01-16] MEDS: BENZONATATE 100 MG CAPSULE 200 MG PO (18:12)
[2021-01-16] MEDS: FLUTICASONE PROPIONATE 0.05% NA SPR 16 GM BTL (*BKC) 1 SPRAY NASAL (20:20)
[2021-01-16 21:55] LABS: Glucose Point of Care 368 mg/dl (65-105)
[2021-01-16] MEDS: INSULIN ASPART (*BKC) 100 UNITS/ML 8 UNITS SUB-Q (22:15)
[2021-01-17] VITALS (9 sets, daily range): BP systolic 131–182; BP diastolic 49–77; PULSE 68–95; RESP 16–20; TEMP 36.2–36.9; O2SAT 93–97
[2021-01-17] MEDS: hydrALAZINE HCL 20 MG/ML VIAL 10 MG IV PUSH (02:41)
--- NOTE | 2021-01-17 06:13 | PC.NURSE ---
At Bedtime accu check patient found to be 368. Neeta Guevara notified and additional 8 units of Novolog ordered
[2021-01-17 06:55] LABS: Basophils Percent Auto 0.1 % (0.2-1.2); Hematocrit 28.7 % (42.0-52.0); Hemoglobin 9.3 g/dL (14.0-18.0); Immature Granulocyte Absolute 0.56 K/mm3 (0.00-0.031); Immature Granulocyte Percent A 4.2 % (0-0.5); Lymphocytes Absolute Auto 0.82 K/mm3 (0.9-3.2); Lymphocytes Percent Auto 6.1 % (18.3-44.2); Mean Corpuscular HGB Conc 32.4 g/dl (32-36); Mean Corpuscular Hemoglobin 29.6 pg (26-34); Mean Corpuscular Volume 91.4 fl (80-100); Mean Platelet Volume 10.9 fl (7.4-10.4); Monocytes Absolute Auto 1.6 K/mm3 (0.1-0.6); Monocytes Percent Auto 12.3 % (2.6-8.5); Neutrophils Absolute Auto 10.3 K/mm3 (1.3-6.7); Neutrophils Percent Auto 77.3 % (45.5-73.1); Platelet Count Result 636 k/mm3 (150-375); Red Blood Count 3.14 M/mm3 (4.6-6.20); Red Cell Distribution Width 13.2 % (11.5-14.5); White Blood Count 13.3 K/mm3 (4.5-10.0)
[2021-01-17 07:10] LABS: Anion Gap 7 mmol/L (8-16); Blood Urea Nitrogen 51 mg/dL (9-20); Calcium 8.4 mg/dL (8.4-10.2); Carbon Dioxide 23 mmol/L (22-30); Chloride 106 mmol/L (98-107); Estimated CRCL calculation 32 ml/min; Estimated Glomerular Filt Rate 31; Glucose 166 mg/dL (65-110); Potassium 4.1 mmol/L (3.4-5.0); Sodium 136 mmol/L (137-145)
[2021-01-17] MEDS: INSULIN ASPART (*BKC) 100 UNITS/ML 10 UNITS SUB-Q ×3 (08:47→18:16)
[2021-01-17] MEDS: INSULIN GLARGINE (*BKC) 100 UNITS/ML 50 UNITS SUB-Q (08:47)
[2021-01-17] MEDS: ALBUTEROL SULFATE (*SP) AEROSOL 1 PUFF 4 PUFF INHALATION ×4 (08:55→20:36)
[2021-01-17] MEDS: polyethylene glycoL 3350 17 GM POWD.PACK PO (08:56)
[2021-01-17] MEDS: BENZOCAINE/MENTHOL (*BKC) 18 EA LOZENGE 1 LOZENGE PO (08:56)
[2021-01-17] MEDS: DEXAMETHASONE SOD PHOS INJ 4 MG/ML VIAL 6 MG IV PUSH (08:56)
[2021-01-17] MEDS: ENOXAPARIN 40 MG/0.4 ML SYRINGE SUB-Q (08:56)
[2021-01-17] MEDS: BENZONATATE 100 MG CAPSULE 200 MG PO ×3 (08:57→18:17)
[2021-01-17] MEDS: METOPROLOL TARTRATE 50 MG TAB PO ×2 (08:57→20:06)
[2021-01-17] MEDS: DOCUSATE SODIUM 100 MG CAPSULE PO ×2 (08:57→20:06)
[2021-01-17] MEDS: amLODIPine BESYLATE 5 MG TABLET 10 MG PO (08:57)
[2021-01-17] MEDS: lisinopriL 10 MG TABLET 30 MG PO (08:57)
[2021-01-17] MEDS: ATORVASTATIN 20 MG TABLET PO (08:58)
[2021-01-17] MEDS: hydrALAZINE HCL 25 MG TABLET PO (08:58)
[2021-01-17] MEDS: FLUTICASONE PROPIONATE 0.05% NA SPR 16 GM BTL (*BKC) 1 SPRAY NASAL ×2 (08:58→21:20)
[2021-01-17 09:00] LABS: Glucose Point of Care 144 mg/dl (65-105)
--- NOTE | 2021-01-17 13:20 | P.PNIM_ITS ---
Progress Note: A&P Assessment and Plan (1) Acute respiratory failure with hypoxia: Code(s): J96.01 - Acute respiratory failure with hypoxia Status: Acute Assessment and Plan: Secondary to COVID-19 pneumonia * Noted to be hypoxic at 89% on presentation. He was started on 3 L supplemental O2 but has been weaned to room air and is maintaining adequate O2 saturations * Continue with supplemental O2 as needed. Goal saturation 92% or above. Wean to goal. (2) COVID-19: Code(s): U07.1 - COVID-19 Status: Acute Assessment and Plan: Positive COVID test on 01/06/2021. CXR showed bilateral pneumonia * Continue IV dexamethasone, started on 01/14/2021 * Remdesivir not initiated on presentation due to low GFR. Not indicated at this time as he has no O2 requirements * Supportive care to include bronchodilators, expectorants, antipyretics, incentive spirometry * Supplemental O2 as described above * Trend acute phase reactants * Continue isolation precautions * He completed Pfizer vaccination in August 2020 Will switch Decadron to oral Decadron she that will help with blood pressure (3) Bilateral pneumonia: Code(s): J18.9 - Pneumonia, unspecified organism Status: Acute Assessment and Plan: Given duration of symptoms and leukocytosis, concomitant bacterial pneumonia considered * Continue IV ceftriaxone and doxycycline * Sputum culture with growth of normal oropharyngeal william * Blood cultures pending; preliminary cultures with no growth * Leukocytosis improved, however has increased again with addition of IV steroids Continue ceftriaxone and doxycycline for now (4) Acute on chronic kidney failure: Code(s): N17.9 - Acute kidney failure, unspecified; N18.9 - Chronic kidney disease, unspecified Status: Acute Assessment and Plan: Creatinine elevated at 2.4 on presentation. He reported no history of CKD, spoke with PCP and his last creatinine in October 2019 was 2.18 * Likely pre renal given dehydration from poor p.o. intake. He has been cautiously rehydrated with IV fluids given his bilateral pneumonia * No evidence of urinary retention on bladder scan * Renal ultrasound showed normal kidneys without hydronephrosis * After speaking with PCP office, it appears he is back to his baseline renal function. Creatinine is 2.0. Because of this, will discontinue IV fluids as he has been adequately rehydrated and is tolerating p.o. intake. * Continue to monitor renal function closely. Renally dose medications and avoid nephrotoxins (5) Insulin dependent type 2 diabetes mellitus: Code(s): E11.9 - Type 2 diabetes mellitus without complications; Z79.4 - [facility] (current) use of insulin Status: Acute Assessment and Plan: A1c is 8.7. Blood sugars have been elevated above target secondary to IV steroids * Continue Accu-Cheks, sliding scale insulin, and hypoglycemic protocol * Continue home Lantus, 50 units * Added 5 units Novolog with meals for improved glycemic control while on steroids. Will increase NovoLog to 10 units with meals * Monitor blood sugar closely given IV steroids, adjust regimen as needed Improved blood sugar today (6) Hypertension: Code(s): I10 - Essential (primary) hypertension Status: Acute Assessment and Plan: Blood pressures have been quite elevated, up to 225/100 and have been quite fluctuant. Overall, slowly improving. Last BP 168/78 * He was noted to be orthostatic yesterday though remained asymptomatic. Continue to mo
--- NOTE | 2021-01-17 13:20 | PM.IMPN ---
Progress Note: A&P Assessment and Plan (1) Acute respiratory failure with hypoxia: Code(s): J96.01 - Acute respiratory failure with hypoxia Status: Acute Assessment and Plan: Secondary to COVID-19 pneumonia Noted to be hypoxic at 89% on presentation. He was started on 3 L supplemental O2 but has been weaned to room air and is maintaining adequate O2 saturations Continue with supplemental O2 as needed. Goal saturation 92% or above. Wean to goal. (2) COVID-19: Code(s): U07.1 - COVID-19 Status: Acute Assessment and Plan: Positive COVID test on 01/06/2021. CXR showed bilateral pneumonia Continue IV dexamethasone, started on 01/14/2021 Remdesivir not initiated on presentation due to low GFR. Not indicated at this time as he has no O2 requirements Supportive care to include bronchodilators, expectorants, antipyretics, incentive spirometry Supplemental O2 as described above Trend acute phase reactants Continue isolation precautions He completed Pfizer vaccination in August 2020 Will switch Decadron to oral Decadron she that will help with blood pressure (3) Bilateral pneumonia: Code(s): J18.9 - Pneumonia, unspecified organism Status: Acute Assessment and Plan: Given duration of symptoms and leukocytosis, concomitant bacterial pneumonia considered Continue IV ceftriaxone and doxycycline Sputum culture with growth of normal oropharyngeal william Blood cultures pending; preliminary cultures with no growth Leukocytosis improved, however has increased again with addition of IV steroids Continue ceftriaxone and doxycycline for now (4) Acute on chronic kidney failure: Code(s): N17.9 - Acute kidney failure, unspecified; N18.9 - Chronic kidney disease, unspecified Status: Acute Assessment and Plan: Creatinine elevated at 2.4 on presentation. He reported no history of CKD, spoke with PCP and his last creatinine in October 2019 was 2.18 Likely pre renal given dehydration from poor p.o. intake. He has been cautiously rehydrated with IV fluids given his bilateral pneumonia No evidence of urinary retention on bladder scan Renal ultrasound showed normal kidneys without hydronephrosis After speaking with PCP office, it appears he is back to his baseline renal function. Creatinine is 2.0. Because of this, will discontinue IV fluids as he has been adequately rehydrated and is tolerating p.o. intake. Continue to monitor renal function closely. Renally dose medications and avoid nephrotoxins (5) Insulin dependent type 2 diabetes mellitus: Code(s): E11.9 - Type 2 diabetes mellitus without complications; Z79.4 - [facility] (current) use of insulin Status: Acute Assessment and Plan: A1c is 8.7. Blood sugars have been elevated above target secondary to IV steroids Continue Accu-Cheks, sliding scale insulin, and hypoglycemic protocol Continue home Lantus, 50 units Added 5 units Novolog with meals for improved glycemic control while on steroids. Will increase NovoLog to 10 units with meals Monitor blood sugar closely given IV steroids, adjust regimen as needed Improved blood sugar today (6) Hypertension: Code(s): I10 - Essential (primary) hypertension Status: Acute Assessment and Plan: Blood pressures have been quite elevated, up to 225/100 and have been quite fluctuant. Overall, slowly improving. Last BP 168/78 He was noted to be orthostatic yesterday though remained asymptomatic. Continue to monitor orthostatic vital signs Continue with metoprolol tartrate 50 mg b.i.d. Amlodipine increased to 10 mg Lisinopril was on hold due to IRASEMA, but will resume at this point as he is back to baseline Continue to monitor blood pressure trends closely and adjust medication regimen as needed Renal duplex pending Add hydralazine 25 mg q.i.d. Continue IV p.r.n. adjust the dose as needed Renal arterial duplex with the jewel
[2021-01-17 13:27] LABS: Glucose Point of Care 262 mg/dl (65-105)
[2021-01-17] MEDS: INSULIN ASPART (*BKC) 100 UNITS/ML SUB-Q ×2 (13:38→18:18)
[2021-01-17] MEDS: hydroCHLOROthiazide 12.5 MG CAPSULE PO (15:30)
[2021-01-17] MEDS: hydrALAZINE HCL 50 MG TABLET PO (18:16)
[2021-01-17 18:30] LABS: Glucose Point of Care 349 mg/dl (65-105)
[2021-01-17 20:54] LABS: Glucose Point of Care 319 mg/dl (65-105)
[2021-01-18] VITALS: BP 153/55; PULSE 62; RESP 16; TEMP 36.1; O2SAT 95
[2021-01-18 04:00] VITALS: BP 158/70; PULSE 61; RESP 18; TEMP 36.4; O2SAT 92
[2021-01-18 06:21] LABS: Basophils Percent Auto 0.3 % (0.2-1.2); Eosinophils Percent Auto 0.1 % (0-4.4); Hematocrit 31.1 % (42.0-52.0); Hemoglobin 10.1 g/dL (14.0-18.0); Immature Granulocyte Absolute 0.61 K/mm3 (0.00-0.031); Immature Granulocyte Percent A 4.2 % (0-0.5); Lymphocytes Absolute Auto 1.07 K/mm3 (0.9-3.2); Lymphocytes Percent Auto 7.3 % (18.3-44.2); Mean Corpuscular HGB Conc 32.5 g/dl (32-36); Mean Corpuscular Hemoglobin 29.5 pg (26-34); Mean Corpuscular Volume 90.9 fl (80-100); Mean Platelet Volume 10.9 fl (7.4-10.4); Monocytes Absolute Auto 1.6 K/mm3 (0.1-0.6); Monocytes Percent Auto 11.1 % (2.6-8.5); Neutrophils Absolute Auto 11.2 K/mm3 (1.3-6.7); Platelet Count Result 677 k/mm3 (150-375); Red Blood Count 3.42 M/mm3 (4.6-6.20); Red Cell Distribution Width 13.2 % (11.5-14.5); White Blood Count 14.6 K/mm3 (4.5-10.0)
[2021-01-18 06:35] LABS: Alanine Aminotransferase 53 U/L (4-50); Albumin Level 2.8 g/dL (3.5-5.1); Alkaline Phosphatase 82 U/L (38-126); Anion Gap 8 mmol/L (8-16); Aspartate Amino Transferase 38 U/L (17-59); Bilirubin,Total 0.4 mg/dL (0.2-1.3); Blood Urea Nitrogen 55 mg/dL (9-20); Calcium 8.3 mg/dL (8.4-10.2); Carbon Dioxide 22 mmol/L (22-30); Chloride 105 mmol/L (98-107); Estimated CRCL calculation 32 ml/min; Estimated Glomerular Filt Rate 31; Glucose 179 mg/dL (65-110); Potassium 4.3 mmol/L (3.4-5.0); Sodium 135 mmol/L (137-145)
[2021-01-18 08:00] VITALS: BP 187/76; PULSE 63; RESP 20; TEMP 36.3; O2SAT 94
[2021-01-18] MEDS: polyethylene glycoL 3350 17 GM POWD.PACK PO (08:29)
[2021-01-18] MEDS: BENZOCAINE/MENTHOL (*BKC) 18 EA LOZENGE 1 LOZENGE PO (08:29)
[2021-01-18] MEDS: ENOXAPARIN 40 MG/0.4 ML SYRINGE SUB-Q (08:29)
[2021-01-18] MEDS: FLUTICASONE PROPIONATE 0.05% NA SPR 16 GM BTL (*BKC) 1 SPRAY NASAL (08:29)
[2021-01-18 08:30] VITALS: PULSE 72
[2021-01-18] MEDS: METOPROLOL TARTRATE 50 MG TAB PO (08:30)
[2021-01-18] MEDS: hydroCHLOROthiazide 12.5 MG CAPSULE PO (08:30)
[2021-01-18] MEDS: DEXAMETHASONE 2 MG TABLET 6 MG PO (08:31)
[2021-01-18] MEDS: DOCUSATE SODIUM 100 MG CAPSULE PO (08:32)
[2021-01-18] MEDS: ATORVASTATIN 20 MG TABLET PO (08:32)
[2021-01-18] MEDS: LOSARTAN POTASSIUM 50 MG TABLET PO (08:32)
[2021-01-18] MEDS: hydrALAZINE HCL 50 MG TABLET PO ×2 (08:32→12:56)
[2021-01-18] MEDS: amLODIPine BESYLATE 5 MG TABLET 10 MG PO (08:32)
[2021-01-18] MEDS: BENZONATATE 100 MG CAPSULE 200 MG PO ×2 (08:32→12:56)
[2021-01-18] MEDS: ALBUTEROL SULFATE (*SP) AEROSOL 1 PUFF 4 PUFF INHALATION ×2 (08:39→12:05)
[2021-01-18] MEDS: INSULIN ASPART (*BKC) 100 UNITS/ML 10 UNITS SUB-Q ×2 (08:40→12:55)
[2021-01-18] MEDS: INSULIN GLARGINE (*BKC) 100 UNITS/ML 50 UNITS SUB-Q (08:41)
[2021-01-18 08:43] VITALS: O2SAT 94
[2021-01-18 08:49] LABS: Glucose Point of Care 152 mg/dl (65-105)
[2021-01-18 12:00] VITALS: BP 116/53; BP 147/60; BP 153/54; PULSE 62; PULSE 64; RESP 22; TEMP 36.3; O2SAT 94; O2SAT 95; O2SAT 97
[2021-01-18 12:35] LABS: Glucose Point of Care 196 mg/dl (65-105)
--- NOTE | 2021-01-18 13:25 | P.DS_ITS ---
DS: Admitting Diagnosis Discharge Date 01/18/2021 Admitting Diagnosis COVID pneumonia DS: Discharge Diagnosis Discharge Diagnosis (1) Acute respiratory failure with hypoxia: Code(s): J96.01 - Acute respiratory failure with hypoxia Status: Acute Assessment and Plan: Secondary to COVID-19 pneumonia * Noted to be hypoxic at 89% on presentation. He was started on 3 L supplemental O2 but has been weaned to room air and is maintaining adequate O2 saturations * Continue with supplemental O2 as needed. Goal saturation 92% or above. Wean to goal. (2) COVID-19: Code(s): U07.1 - COVID-19 Status: Acute Assessment and Plan: Positive COVID test on 01/06/2021. CXR showed bilateral pneumonia * Continue IV dexamethasone, started on 01/14/2021 * Remdesivir not initiated on presentation due to low GFR. Not indicated at this time as he has no O2 requirements * Supportive care to include bronchodilators, expectorants, antipyretics, incent idony spirometry * Supplemental O2 as described above * Trend acute phase reactants * Continue isolation precautions * He completed Pfizer vaccination in August 2020 Switched to Decadron p.o. for total 10 days course 5 more days left at discharge (3) Bilateral pneumonia: Code(s): J18.9 - Pneumonia, unspecified organism Status: Acute Assessment and Plan: Given duration of symptoms and leukocytosis, concomitant bacterial pneumonia considered * Continue IV ceftriaxone and doxycycline * Sputum culture with growth of normal oropharyngeal william * Blood cultures pending; preliminary cultures with no growth * Leukocytosis improved, however has increased again with addition of IV steroids Continue ceftriaxone and doxycycline for now Will stop ceftriaxone doxycycline at discharge for 3 more days (4) Acute on chronic kidney failure: Code(s): N17.9 - Acute kidney failure, unspecified; N18.9 - Chronic kidney disease, unspecified Status: Acute Assessment and Plan: Creatinine elevated at 2.4 on presentation. He reported no history of CKD, spoke with PCP and his last creatinine in October 2019 was 2.18 * Likely pre renal given dehydration from poor p.o. intake. He has been cautiously rehydrated with IV fluids given his bilateral pneumonia * No evidence of urinary retention on bladder scan * Renal ultrasound showed normal kidneys without hydronephrosis * After speaking with PCP office, it appears he is back to his baseline renal function. Creatinine is 2.0. Because of this, will discontinue IV fluids as he has been adequately rehydrated and is tolerating p.o. intake. * Continue to monitor renal function closely. Renally dose medications and avoid nephrotoxins (5) Insulin dependent type 2 diabetes mellitus: Code(s): E11.9 - Type 2 diabetes mellitus without complications; Z79.4 - [facility] (current) use of insulin Status: Acute Assessment and Plan: A1c is 8.7. Blood sugars have been elevated above target secondary to IV steroids * Continue Accu-Cheks, sliding scale insulin, and hypoglycemic protocol * Continue home Lantus, 50 units * Added 5 units Novolog with meals for improved glycemic control while on steroids which was increased to NovoLog to 10 units with meals * Monitor blood sugar closely given IV steroids, adjust regimen as needed (6) Hypertension: Code(s): I10 - Essential (primary) hypertension Status: Acute Assessment and Plan: Blood pressures have been quite elevated, up to 225/100 and have
--- NOTE | 2021-01-18 13:25 | PM.DS ---
DS: Admitting Diagnosis Discharge Date 01/18/2021 Admitting Diagnosis COVID pneumonia DS: Discharge Diagnosis Discharge Diagnosis (1) Acute respiratory failure with hypoxia: Code(s): J96.01 - Acute respiratory failure with hypoxia Status: Acute Assessment and Plan: Secondary to COVID-19 pneumonia Noted to be hypoxic at 89% on presentation. He was started on 3 L supplemental O2 but has been weaned to room air and is maintaining adequate O2 saturations Continue with supplemental O2 as needed. Goal saturation 92% or above. Wean to goal. (2) COVID-19: Code(s): U07.1 - COVID-19 Status: Acute Assessment and Plan: Positive COVID test on 01/06/2021. CXR showed bilateral pneumonia Continue IV dexamethasone, started on 01/14/2021 Remdesivir not initiated on presentation due to low GFR. Not indicated at this time as he has no O2 requirements Supportive care to include bronchodilators, expectorants, antipyretics, incentive spirometry Supplemental O2 as described above Trend acute phase reactants Continue isolation precautions He completed Pfizer vaccination in August 2020 Switched to Decadron p.o. for total 10 days course 5 more days left at discharge (3) Bilateral pneumonia: Code(s): J18.9 - Pneumonia, unspecified organism Status: Acute Assessment and Plan: Given duration of symptoms and leukocytosis, concomitant bacterial pneumonia considered Continue IV ceftriaxone and doxycycline Sputum culture with growth of normal oropharyngeal william Blood cultures pending; preliminary cultures with no growth Leukocytosis improved, however has increased again with addition of IV steroids Continue ceftriaxone and doxycycline for now Will stop ceftriaxone doxycycline at discharge for 3 more days (4) Acute on chronic kidney failure: Code(s): N17.9 - Acute kidney failure, unspecified; N18.9 - Chronic kidney disease, unspecified Status: Acute Assessment and Plan: Creatinine elevated at 2.4 on presentation. He reported no history of CKD, spoke with PCP and his last creatinine in October 2019 was 2.18 Likely pre renal given dehydration from poor p.o. intake. He has been cautiously rehydrated with IV fluids given his bilateral pneumonia No evidence of urinary retention on bladder scan Renal ultrasound showed normal kidneys without hydronephrosis After speaking with PCP office, it appears he is back to his baseline renal function. Creatinine is 2.0. Because of this, will discontinue IV fluids as he has been adequately rehydrated and is tolerating p.o. intake. Continue to monitor renal function closely. Renally dose medications and avoid nephrotoxins (5) Insulin dependent type 2 diabetes mellitus: Code(s): E11.9 - Type 2 diabetes mellitus without complications; Z79.4 - exterminator helper (current) use of insulin Status: Acute Assessment and Plan: A1c is 8.7. Blood sugars have been elevated above target secondary to IV steroids Continue Accu-Cheks, sliding scale insulin, and hypoglycemic protocol Continue home Lantus, 50 units Added 5 units Novolog with meals for improved glycemic control while on steroids which was increased to NovoLog to 10 units with meals Monitor blood sugar closely given IV steroids, adjust regimen as needed (6) Hypertension: Code(s): I10 - Essential (primary) hypertension Status: Acute Assessment and Plan: Blood pressures have been quite elevated, up to 225/100 and have been quite fluctuant. Overall, slowly improving. Last BP 168/78 He was noted to be orthostatic yesterday though remained asymptomatic. Continue to monitor orthostatic vital signs Continue with metoprolol tartrate 50 mg b.i.d. Amlodipine increased to 10 mg Lisinopril was on hold due to IRASEMA, but will resume at this point as he is back to baseline Continue to monitor blood pressure trends closely and adjust medication regimen
== END 2021-01-18 14:50 | disposition home or self-care (01) | DRG 177 ==
LOC: ANHED 08:46 → ANH3MEDSUR 01-14 06:56
PROVIDERS: Internal Medicine; Physician Assistant; Admitting Provider Internal Medicine; Emergency Provider Emergency Medicine; PCP Family Medicine Adolescent Medicine; Visit Provider Physician Assistant
DX: U07.1 COVID-19 (principal); J96.01 Acute respiratory failure with hypoxia; J12.82 Pneumonia due to coronavirus disease 2019; J15.9 Unspecified bacterial pneumonia; N17.9 Acute kidney failure, unspecified; E11.22 Type 2 diabetes mellitus with diabetic chronic kidney disease; I12.9 Hypertensive chronic kidney disease with stage 1 through stage 4 chronic kidney disease, or unspecified chronic kidney disease; N18.9 Chronic kidney disease, unspecified; E78.5 Hyperlipidemia, unspecified; Z23 Encounter for immunization; Z79.4 Long term (current) use of insulin; Z79.899 Other long term (current) drug therapy
CPT/HCPCS: 36415; 71045; 76775; 80048; 80053; 80076; 82550; 82565; 82570; 82728; 82948; 83036; 83605; 83615; 83735; 83880; 84145; 84300; 84460; 84540; 85025; 85027; 85610; 86140; 87040; 87070; 87205; 90471; 90653; 93005; 93976; 94640; 96374; 97161; 97165; 99285; A9270; G0008; J0360; J0696; J1100; J1650; J1815; J7120; J8540

== ENCOUNTER 2021-08-07 10:11 | Inpatient (IN) | payer MEDICARE, SELFPAY ==
[2021-08-07] VITALS (45 sets, daily range): BP systolic 146–219; BP diastolic 71–111; PULSE 60–111; RESP 16–37; TEMP 36.2–37.8; O2SAT 89–99; BMI 28.6
--- NOTE | ~2021-08-07 | XR_ITS ---
EXAMINATION: XR chest 2V DATE: 08/07/2021 10:58 INDICATION: Shortness of breath. Cough and wheezing. TECHNIQUE: Frontal and lateral views of the chest were obtained. COMPARISON: Chest single view 01/13/2021 FINDINGS: There are mild patchy airspace opacities in the mid and lower lung zones. No pleural effusi on or pneumothorax. The heart size is normal. IMPRESSION: 1. Mild patchy airspace opacities in the mid and lower lung zones with interval improvement, consiste nt with pneumonia versus atelectasis/scarring. Reviewed, dictated and finalized at location A. IMPRESSION: 1. Mild patchy airspace opacities in the mid and lower lung zones with interval improvement, consistent with pneumonia versus atelectasis/scarring.
--- NOTE | 2021-08-07 10:17 | ECG_ITS ---
Measurements Intervals [place] Rate: 107 P: 50 [place]: 151 QRS: -84 QRSD: 138 T: 57 QT: 339 QTc: 453 Interpretive Statements SINUS TACHYCARDIA RIGHT BUNDLE BRANCH BLOCK [120+ ms QRS DURATION, UPRIGHT V1, 40+ ms S IN I/aVL/V4/V5/V6] LEFT ANTERIOR FASCICULAR BLOCK [QRS AXIS <= -45, QR IN I, RS IN II] COMPARED TO ECG 01/13/2021 07:20:49 PVCS ARE NOT PRESENT Electronically Signed On 08-07-2021 12:52:20 CDT by Paras Mcclain M.D.
[2021-08-07 10:33] LABS: Hematocrit 35.8 % (42.0-52.0); Hemoglobin 11.3 g/dL (14.0-18.0); Mean Corpuscular HGB Conc 31.6 g/dl (32-36); Mean Corpuscular Hemoglobin 29.4 pg (26-34); Mean Corpuscular Volume 93.2 fl (80-100); Mean Platelet Volume 11.7 fl (7.4-10.4); Platelet Count Result 315 k/mm3 (150-375); Red Blood Count 3.84 M/mm3 (4.6-6.20); Red Cell Distribution Width 13.3 % (11.5-14.5); White Blood Count 18.3 K/mm3 (4.5-10.0)
--- NOTE | 2021-08-07 10:33 | PC.NURSE ---
SENIOR INTERNAL AUDITOR at bedside to assess pt.
--- NOTE | 2021-08-07 10:36 | PC.NURSE ---
RT at bedside for breathing treatment administration.
--- NOTE | 2021-08-07 10:36 | ED.SOB ---
HPI - SOB/Dyspnea General Chief Complaint: Shortness of Breath/Dyspnea Stated Complaint: short of breath Time Seen by Provider: 08/07/21 10:23 History of Present Illness HPI Narrative: 75-year-old male presents to the emergency room for evaluation of a shortness of breath, cough, wheezing that started 3 days ago. Patient denies any chest pain. Patient states symptoms are accompanied with a low-grade fever. Reports symptoms are similar to what he experienced back in March, where he was hospitalized for 7 days. Related Data Home Medications Medication Instructions Recorded Confirmed aspirin 81 mg tablet,delayed 162 mg PO DAILY tablet 05/27/21 05/27/21 release metformin 500 mg tablet,extended 2,000 mg PO DAILY tablet 05/27/21 05/27/21 release 24 hr Allergies Allergy/AdvReac Type Severity Reaction Status Date / Time No Known Allergies Allergy Verified 05/06/21 07:53 Review of Systems Review of Systems: CONSTITUTIONAL: Reports fever EYES: Denies visual changes, redness, or discharge. ENT: Denies rhinorrhea, congestion, sore throat, or otalgia. CARDIOVASCULAR: Denies chest pain, palpitations, or edema. RESPIRATORY: Reports cough and dyspnea GASTROINTESTINAL: Denies abdominal pain, nausea, vomiting, or diarrhea. GENITOURINARY: Denies dysuria or hematuria. SKIN: Denies rash or itching. MUSCULOSKELETAL: Denies back pain, joint pain, or myalgia. NEUROLOGIC: Denies headache, numbness, dizziness, or weakness. PSYCHIATRIC: Denies anxiety or depression. FORMERLY [facility], 1928–1983 Past Medical History Medical History Acute on chronic kidney failure COVID-19 01/29 w/pneumonia Surgical History Surgical History History of appendectomy History of colonoscopy (08/04/15) Revealed internal hemorrhoids. Family History Family History Other Diabetes mellitus Hypertension Social History Social History Social History: The patient is and lives with his in [place]. 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 Lifelong nonsmoker. No alcohol or illicit substance use. He designates his , Denise Chen, as his surrogate decision maker. Smoking status: Former smoker Tobacco type: cigarettes Second hand tobacco smoke exposure: No Alcohol intake: never Substance use type: does not use Gender identity (if verbalized by the patient): Male Sexual Orientation (if Verbalized by the Patient): Straight or Heterosexual Spiritual care concerns: No Agree to blood products: Yes Exam Narrative: GENERAL: Well-appearing, well-nourished, and in mild respiratory distress. HEAD: Normocephalic, atraumatic. EYES: PERRLA and EOMI. CHEST: Wheezing throughout HEART: Regular rate and rhythm. No murmur heard. Normal peripheral pulses. ABDOMEN: Soft, nontender, nondistended, obese, normal active bowel sounds. EXTREMITIES: Normal range of motion. No edema. SKIN: Warm, dry, no rash. NEURO: No focal deficits. Alert and oriented x3. PSYCH: Normal mood and affect. Course Vital Signs Vital signs: Vital Signs Pulse Rate 109 H 08/07/21 10:18 Respiratory Rate 27 H 08/07/21 10:18 Blood Pressure 219/97 H 08/07/21 10:18 Pulse Oximetry 93 08/07/21 10:18 Temperature 37.8 C H 08/07/21 10:34 Pulse Rate 76 08/07/21 11:58 Respiratory Rate 26 H 08/07/21 11:58 Blood Pressure 158/98 H 08/07/21 11:02 Pulse Oximetry 94 08/07/21 11:26 MDM - SOB/Dyspnea MDM Narrative Medical decision making narrative: 75-year-old male presents to the emergency room for evaluation of cough, shortness of breath, and fever for 3 days. CBC shows an elevated white count of 18.3. CMP shows an elevated creatinine and BUN consistent with renal disease. Chest x-ray shows patchy airspace opa
[2021-08-07] MEDS: IPRATROPIUM BR 0.02% INH SOLN 0.5 MG/2.5 ML VIAL INHALATION ×2 (10:37→20:18)
[2021-08-07] MEDS: ALBUTEROL SULFATE NEB 2.5 MG/0.5 ML INH INHALATION ×3 (10:37→20:18)
[2021-08-07 10:44] LABS: Alanine Aminotransferase 16 U/L (4-50); Alkaline Phosphatase 88 U/L (38-126); Anion Gap 9 mmol/L (8-16); Aspartate Amino Transferase 28 U/L (17-59); Bilirubin,Total 0.3 mg/dL (0.2-1.3); Blood Urea Nitrogen 37 mg/dL (9-20); Calcium 8.6 mg/dL (8.4-10.2); Carbon Dioxide 17 mmol/L (22-30); Chloride 112 mmol/L (98-107); Estimated CRCL calculation 26 ml/min; Estimated Glomerular Filt Rate 23; Glucose 231 mg/dL (65-110); Potassium 4.8 mmol/L (3.4-5.0); Sodium 138 mmol/L (137-145)
[2021-08-07] MEDS: METOPROLOL TARTRATE 50 MG TAB PO ×2 (10:47→20:24)
[2021-08-07] MEDS: methylPREDNISolone SOD SUCC 125 MG VIAL IV PUSH (10:47)
[2021-08-07] MEDS: ACETAMINOPHEN 500 MG TABLET 1000 MG PO (10:47)
--- NOTE | 2021-08-07 10:56 | PC.NURSE ---
Patient off unit to radiology for chest xray.
[2021-08-07] MEDS: lisinopriL 10 MG TABLET 30 MG PO (11:13)
[2021-08-07 11:37] LABS: Band Neutrophils Percent 8 % (0-6); Eosinophils Absolute Manual 0.36 K/mm3 (0.02-0.5); Eosinophils Percent Manual 2 % (0-4); Hypochromasia 1+ (NORMAL); Lymphocytes Absolute Manual 0.54 K/mm3 (1.1-4.5); Metamyelocytes Percent 2 %; Monocytes Absolute Manual 0.36 K/mm3 (0.1-0.90); Monocytes Percent Manual 2 % (3-9); Neutrophils Absolute Manual 16.65 K/mm3 (1.3-6.7); Neutrophils Percent Manual 83 % (46-73); Platelet Estimate Adequate (Adequate); Total Cells Counted 100
[2021-08-07 11:57] LABS: Alveolar/Arterial O2 Gradient 78.3 mmHg; Base Excess ABG -6.4 mEq/l (+/-2.0); Fractional Inspired Oxygen 28 %; Oxygen Content ABG 15.3 %vol (16.0-22.0); Oxygen Saturation ABG 96.1 % (95.0-100.0); Oxyhemoglobin 94.7 % THb (90.0-100.0); PCO2 ABG 32.1 mmHg (35.0-45.0); PO2 ABG 83.5 mmHg (80.0-100.0); PO2 FiO2 Ratio Arterial Blood 2.98 %; Total Hemoglobin 11.4 g/dL (12.0-18.0); pH ABG 7.366 (7.350-7.450)
[2021-08-07 11:58] LABS: Device NASAL CANNULA; Modified Allen's Test Pass; Site Drawn LEFT RADIAL
[2021-08-07] MEDS: SODIUM CHLORIDE 0.9% IV 1,000 ML 999 ML IV CONT (13:24)
[2021-08-07 13:29] LABS: Influenza A QL RT-PCR Negative (Negative); Influenza B QL RT-PCR Negative (Negative); SARS-CoV-2 RNA PCR Negative
--- NOTE | 2021-08-07 13:30 | PM.IMHP ---
H&P: HPI History of Present Illness Date/Time: 08/07/21 13:30 <Sharon Doan PA-C - Last Filed: 08/07/21 17:38> Chief Complaint: Cough and shortness of breath. <Sharon Doan PA-C - Last Filed: 08/07/21 17:38> Narrative: This is a very pleasant 75-year-old male with insulin-dependent type 2 diabetes mellitus, hypertension, hyperlipidemia, anemia, and chronic kidney disease who presented to the emergency department from home for evaluation of cough and shortness of breath. He reports a gradual onset of several symptoms the last 3 or 4 days including low-grade fever, cough productive of clear phlegm, decreased appetite, and shortness of breath with wheezing. He had similar symptoms last fall when he had COVID pneumonia and after speaking with his doctor he was prescribed an unknown antibiotic which he has taken for 2 days without improvement. He had a low-grade temperature of 100.1? F on arrival and his pulse ox was as low as 89% on room air in triage. Pertinent labs include a white blood cell count of 18.3 with 83% neutrophils and 8% bands on manual differential. His BUN and creatinine are also elevated from baseline. Chest x-ray was read as having mild patchy airspace opacities in the mid and lower lung zones and he is being admitted in this setting. He denies sick contacts, travel, dysphagia, and concerns for aspiration. He also denies headache, neck ache, sore throat, chest pain, pleuritic pain, vomiting, and diarrhea. <Shaorn Doan PA-C - Last Filed: 08/07/21 17:38> Review of Systems Review of Systems: Twelve systems were reviewed. No syncope or near syncope. No chest pain. Endorses wheezing; no history of asthma or COPD. Glucose has been running around 200 the last few days. No blurry vision, polydipsia, or polyuria. Except as documented, all other systems were reviewed and are negative. <Sharon Doan PA-C - Last Filed: 08/07/21 17:38> REPLACED BY [facility] Past Medical History Medical History: Medical History (Updated 08/07/21 @ 13:06 by Sharon Doan PA-C) Anemia of chronic disease Aortic atherosclerosis Noted on CT in 10/2011. Chronic kidney disease, stage 4 (severe) Creatinine ranges between 2.10 and 2.60. COVID-19 (12/2020) Hospitalized at that time with pneumonia. Hypertension Insulin dependent type 2 diabetes mellitus Hemoglobin A1c was 8.5% in May 2021. Mixed hyperlipidemia Occlusion and stenosis of left carotid artery 50% stenosis on ultrasound in 2014. <Sharon Doan PA-C - Last Filed: 08/07/21 17:38> Surgical History Surgical History: Surgical History History of appendectomy History of colonoscopy (08/04/15) Revealed internal hemorrhoids. <Sharon Doan PA-C - Last Filed: 08/07/21 17:38> Family History Family History: Family History Father Diabetes mellitus Hypertension <Sharon Doan PA-C - Last Filed: 08/07/21 17:38> Social History Social History: Social History (Updated 08/07/21 @ 17:31 by Sharon Doan PA-C) Social History: . Lives with his in [place]. 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 He smoked a pack of cigarettes a day for 10 years and quit about 50 years ago. No alcohol or illicit substance use. He designates his , Denise Chen, as his surrogate decision maker. Spiritual care concerns: No Agree to blood products: Yes <Sharon Doan PA-C - Last Filed: 08/07/21 17:38> Meds Home Medications and Allergies Home medications: Home Medications Medication Instructions Recorded Confirmed Type insulin glargine 100 unit/mL (3 50 unit SUBCUT DAILY #15 ml 05/04/21 08/07/21 Rx mL) subcutaneous pen pen needle, diabetic 32 gauge x #100 ea 05/04/21 08/07/21 Rx atorvastatin 20 mg tablet 20 mg PO DAILY #90 tablet 05/05/21 0
--- NOTE | 2021-08-07 14:00 | PC.NURSE ---
This patient, Vinayak Chen, was admitted to 3 [facility] Surg Room 316-01. Patient/family oriented to hospital policies and general routines including ID bracelet, bed and alarms, visiting hours, pain management, procedures, bathroom and other care routines, personal items, smoking policy, room service/diet, and visiting hours. Report received from Lisa TAVARES Information on how to activate the Rapid Response Team has been discussed. Patient/Family are encouraged to report perceived risks to care and to ask questions if they do not understand what they are told or what they should do.
[2021-08-07] MEDS: SODIUM CHLORIDE 0.9% IV 1,000 ML 125 ML IV CONT (16:55)
[2021-08-07] MEDS: LACTATED RINGERS 1,000 ML 100 ML IV CONT (18:15)
[2021-08-07 18:39] LABS: Hemoglobin A1C 7.7 % (<5.7)
[2021-08-07] MEDS: guaiFENesin 12 HR 600 MG TABCR PO (20:22)
[2021-08-07 20:52] LABS: Glucose Point of Care 422 mg/dl (65-105)
[2021-08-08] VITALS (13 sets, daily range): BP systolic 188–202; BP diastolic 75–81; PULSE 59–90; RESP 16–20; TEMP 36.3–36.8; O2SAT 93–97
[2021-08-08] MEDS: IPRATROPIUM BR 0.02% INH SOLN 0.5 MG/2.5 ML VIAL INHALATION ×4 (02:00→20:04)
[2021-08-08] MEDS: ALBUTEROL SULFATE NEB 2.5 MG/0.5 ML INH INHALATION ×4 (02:00→20:04)
[2021-08-08 05:53] LABS: Hematocrit 31.8 % (42.0-52.0); Mean Corpuscular HGB Conc 31.4 g/dl (32-36); Mean Corpuscular Hemoglobin 29.6 pg (26-34); Mean Corpuscular Volume 94.1 fl (80-100); Mean Platelet Volume 11.9 fl (7.4-10.4); Platelet Count Result 269 k/mm3 (150-375); Red Blood Count 3.38 M/mm3 (4.6-6.20); Red Cell Distribution Width 13.6 % (11.5-14.5)
[2021-08-08 06:10] LABS: Anion Gap 5 mmol/L (8-16); Blood Urea Nitrogen 41 mg/dL (9-20); Calcium 8.2 mg/dL (8.4-10.2); Carbon Dioxide 21 mmol/L (22-30); Chloride 110 mmol/L (98-107); Estimated CRCL calculation 28 ml/min; Estimated Glomerular Filt Rate 28; Glucose 245 mg/dL (65-110); Magnesium 1.8 mg/dL (1.6-2.3); Potassium 4.8 mmol/L (3.4-5.0); Sodium 136 mmol/L (137-145)
[2021-08-08 07:12] LABS: Glucose Point of Care 249 mg/dl (65-105)
[2021-08-08] MEDS: INSULIN ASPART (*BKC) 100 UNITS/ML SUB-Q ×3 (08:38→17:07)
[2021-08-08] MEDS: INSULIN GLARGINE (*BKC) 100 UNITS/ML 50 UNITS SUB-Q (08:39)
[2021-08-08] MEDS: GLIMEPIRIDE 1 MG TABLET PO (08:46)
[2021-08-08] MEDS: lisinopriL 5 MG TABLET 15 MG PO (08:46)
[2021-08-08] MEDS: ASPIRIN 81 MG ENTERIC TABLET 162 MG PO (08:46)
[2021-08-08] MEDS: guaiFENesin 12 HR 600 MG TABCR PO ×2 (08:46→21:03)
[2021-08-08] MEDS: ATORVASTATIN 20 MG TABLET PO (08:46)
[2021-08-08] MEDS: DOCUSATE SODIUM 100 MG CAPSULE PO (08:47)
[2021-08-08] MEDS: ENOXAPARIN 40 MG/0.4 ML SYRINGE SUB-Q (08:47)
--- NOTE | 2021-08-08 10:28 | PCCCNOTE ---
On 08/08/21, the student, [Merlyn De Jesus], provided care and completed [facility] documentation on this patient. I have reviewed the student's documentation and agree with the findings.
[2021-08-08 11:53] LABS: Glucose Point of Care 284 mg/dl (65-105)
[2021-08-08] MEDS: BENZONATATE 100 MG CAPSULE 200 MG PO (13:34)
[2021-08-08 16:29] LABS: Glucose Point of Care 230 mg/dl (65-105)
--- NOTE | 2021-08-08 17:19 | PM.IMPN ---
Progress Note: A&P Assessment and Plan (1) Pneumonia: Qualifiers: Laterality: unspecified laterality Lung location: lower lobe of lung Pneumonia type: due to unspecified organism Qualified Code(s): J18.9 - Pneumonia, unspecified organism Code(s): J18.9 - Pneumonia, unspecified organism Status: Acute Assessment and Plan: Started on azithromycin and ceftriaxone for community-acquired pneumonia, day 2 of antibiotics Legionella pending, hypoxia resolved. (2) Hypertensive chronic kidney disease with stage 1 through stage 4 chronic kidney disease, or unspecified chronic kidney disease: Code(s): I12.9 - Hypertensive chronic kidney disease with stage 1 through stage 4 chronic kidney disease, or unspecified chronic kidney disease Status: Acute Assessment and Plan: Stable, continue outpatient management (3) Insulin dependent type 2 diabetes mellitus: Code(s): E11.9 - Type 2 diabetes mellitus without complications; Z79.4 - exterminator helper (current) use of insulin Status: Acute Assessment and Plan: Uncontrolled, continue basal insulin, sliding scale insulin (4) Mixed hyperlipidemia: Code(s): E78.2 - Mixed hyperlipidemia Status: Acute Assessment and Plan: Stable, continue outpatient management (5) Hypertension: Code(s): I10 - Essential (primary) hypertension Status: Acute Assessment and Plan: Stable, continue outpatient management Subjective Date/time seen: 08/08/21 15:02 Patient feeling much better today, on room air. No chest pain or shortness of breath. No nausea vomiting diarrhea. He is complaining of a productive cough that keeps him up at night. It seems to improve with Tessalon Perles. No fevers or chills overnight events noted. Review of Systems Review of Systems: All systems reviewed & are unremarkable except as noted in HPI and below Exam Const: General: no acute distress HENMT: Mouth: Yes moist mucous membranes Eyes: General: appearance normal, both eyes and all related structures Neck: Neck: no JVD Resp: Auscultation: clear to auscultation bilaterally, rhonchi and no wheezes Cardio: Rate: regular rate Rhythm: regular rhythm GI: Inspection: non-distended GI Palp: Yes Soft to palpation and No Tenderness to palpation present (GI) Objective Data Vital Signs Vital Signs: Vital Signs - 24 hr 08/07/21 20:18 08/07/21 20:20 04/29/22 20:24 Temperature Pulse Rate 71 71 60 Respiratory Rate 22 H Blood Pressure Pulse Oximetry 95 08/07/21 20:36 08/07/21 21:34 08/07/21 23:36 Temperature 97.2 F L Pulse Rate 74 71 Respiratory Rate 22 H 19 Blood Pressure 185/111 H 190/71 H Pulse Oximetry 99 08/08/21 02:00 08/08/21 02:09 08/08/21 02:10 Temperature Pulse Rate 59 L 65 59 L Respiratory Rate 20 20 Blood Pressure Pulse Oximetry 96 08/08/21 05:29 08/08/21 07:39 08/08/21 07:48 Temperature 97.5 F L Pulse Rate 65 64 65 Respiratory Rate 18 16 16 Blood Pressure 196/78 H Pulse Oximetry 93 94 08/08/21 13:45 08/08/21 13:50 08/08/21 14:00 Temperature 97.3 F L Pulse Rate 71 75 83 Respiratory Rate 18 18 20 Blood Pressure 188/75 H Pulse Oximetry 96 Intake/Output Intake/Output: Intake & Output 08/05/21 08/06/21 08/07/21 08/08/21 23:59 23:59 23:59 23:59 Intake Total 1705 994 Output Total 400 2300 Balance 1305 -1306 Meds/Results Medications: Active Medications Generic Name Dose Route Start Last Admin Trade Name Valentinq PRN Reason Stop Dose Admin Acetaminophen 650 mg 08/07/21 17:42 Acetaminophen 325 Mg Tablet PO Q6H PRN Mild Pain (1-3) or Fever Albuterol 2.5 mg 08/07/21 20:00 08/08/21 13:42 Albuterol Sulfate Neb 2.5 Mg/0.5 Ml Inh INHALATION 2.5 mg Q6HRT [place] Administration Aspirin 162 mg 08/08/21 09:00 08/08/21 08:46 Aspirin 81 Mg Enteric Tablet PO 162 mg DAILY [place] Administration Atorvastatin Drew
[2021-08-08 20:46] LABS: Glucose Point of Care 227 mg/dl (65-105)
[2021-08-08] MEDS: METOPROLOL TARTRATE 50 MG TAB PO (21:04)
[2021-08-09] VITALS (17 sets, daily range): BP systolic 177–217; BP diastolic 87–117; PULSE 69–78; RESP 18–22; TEMP 36.2–37.3; O2SAT 94–98
[2021-08-09] MEDS: ALBUTEROL SULFATE NEB 2.5 MG/0.5 ML INH INHALATION ×4 (02:27→20:02)
[2021-08-09] MEDS: IPRATROPIUM BR 0.02% INH SOLN 0.5 MG/2.5 ML VIAL INHALATION ×4 (02:27→20:03)
[2021-08-09 07:42] LABS: Glucose Point of Care 81 mg/dl (65-105)
[2021-08-09] MEDS: ENOXAPARIN 40 MG/0.4 ML SYRINGE SUB-Q (07:59)
[2021-08-09] MEDS: ASPIRIN 81 MG ENTERIC TABLET 162 MG PO (08:01)
[2021-08-09] MEDS: GLIMEPIRIDE 1 MG TABLET PO (08:01)
[2021-08-09] MEDS: BENZONATATE 100 MG CAPSULE 200 MG PO (08:01)
[2021-08-09] MEDS: ATORVASTATIN 20 MG TABLET PO (08:02)
[2021-08-09] MEDS: guaiFENesin 12 HR 600 MG TABCR PO ×2 (08:02→20:19)
[2021-08-09] MEDS: lisinopriL 5 MG TABLET 15 MG PO (08:02)
[2021-08-09] MEDS: METOPROLOL TARTRATE 50 MG TAB PO ×2 (08:02→20:19)
[2021-08-09 08:56] LABS: Glucose Point of Care 87 mg/dl (65-105)
[2021-08-09] MEDS: INSULIN GLARGINE (*BKC) 100 UNITS/ML 25 UNITS SUB-Q (09:33)
[2021-08-09 11:34] LABS: Glucose Point of Care 130 mg/dl (65-105)
[2021-08-09] MEDS: PHENOL/SOD PHENO SPRAY CHERRY (*BKC) 1 SPRAY MUCOUS MEM (13:32)
--- NOTE | 2021-08-09 15:20 | PM.IMPN ---
Progress Note: A&P Assessment and Plan (1) Pneumonia: Qualifiers: Laterality: unspecified laterality Lung location: lower lobe of lung Pneumonia type: due to unspecified organism Qualified Code(s): J18.9 - Pneumonia, unspecified organism Code(s): J18.9 - Pneumonia, unspecified organism Status: Acute Assessment and Plan: Started on azithromycin and ceftriaxone for community-acquired pneumonia, day 3 of antibiotics, Legionella negative, hypoxia resolved. Will start prednisone burst for wheezing and cough, day 1 of 5 started today. (2) Hypertensive chronic kidney disease with stage 1 through stage 4 chronic kidney disease, or unspecified chronic kidney disease: Code(s): I12.9 - Hypertensive chronic kidney disease with stage 1 through stage 4 chronic kidney disease, or unspecified chronic kidney disease Status: Acute Assessment and Plan: Stable, continue outpatient management (3) Insulin dependent type 2 diabetes mellitus: Code(s): E11.9 - Type 2 diabetes mellitus without complications; Z79.4 - supervisor intermediates (current) use of insulin Status: Acute Assessment and Plan: Uncontrolled, continue basal insulin, sliding scale insulin, actually had episode of hypoglycemia so half dose Lantus was given instead, due to being started on steroids today, anticipate this to resolve eventually, patient states he has been on Lantus 50 units for years and takes it every day without checking his sugar has never had an issue, he does admit to eating significantly less calories here than he does while at home (4) Mixed hyperlipidemia: Code(s): E78.2 - Mixed hyperlipidemia Status: Acute Assessment and Plan: Stable, continue outpatient management (5) Hypertension: Code(s): I10 - Essential (primary) hypertension Status: Acute Assessment and Plan: Stable, continue outpatient management Additional Plan The patient presents with progressive cough and shortness of breath over the last 4 days or so with no benefit after starting an antibiotic. Chest x-ray shows bilateral pneumonia and he has been started on azithromycin and ceftriaxone for community-acquired pneumonia. Sputum for culture and urinary antigens have been ordered to rule out Legionella and pneumococcus. He has pretty significant wheezing thus will schedule bronchodilators q.6 hours for now. Mucinex and [place] to help mobilize secretions. Hypoxia is presumably related to the pneumonia and oxygen will be weaned as tolerated. BUN and creatinine are elevated from baseline, likely due to mild dehydration from poor oral intake the last 3 to 4 days. He will be cautiously hydrated with close monitoring of volume status and renal function. Hemoglobin is a bit higher than what he typically runs, likely due to hemoconcentration from dehydration, and I suspect this may decrease with IV fluids. Random glucose today is 231 and we will continue with his basal insulin. Initiate sliding scale insulin, Accu-Cheks, and hypoglycemic protocol. Check hemoglobin A1c. The rest of his home medications will be reviewed and resumed as appropriate. Subjective Date/time seen: 08/09/21 15:20 Patient states he feels better than yesterday but is still wheezing and coughing quite a bit. Cough is dry and nonproductive. Tessalon Perles only helping a little bit. Breathing treatments not helping. Denies fevers or chills overnight events. States he feels in good health otherwise. Review of Systems Review of Systems: All systems reviewed & are unremarkable except as noted in HPI and below Exam Narrative: General: Mildly ill-appearing gentleman sitting up in bed. Weight: 95.9 kg. BMI: 28.7. HEENT: PERRL, EOMI. Sclerae anicteric. Tacky mucous membranes. Neck: Supple. No lymphadenopathy or JVD. Respiratory: Faint crackles at the bases with expiratory wheezing. Cardiovascular: Regular rate and rhythm with S1-S2. Gastrointestinal: Abdome
[2021-08-09 16:22] LABS: Glucose Point of Care 112 mg/dl (65-105)
[2021-08-09 20:33] LABS: Glucose Point of Care 155 mg/dl (65-105)
[2021-08-10 02:13] VITALS: PULSE 70; RESP 18
[2021-08-10] MEDS: ALBUTEROL SULFATE NEB 2.5 MG/0.5 ML INH INHALATION ×2 (02:13→07:58)
[2021-08-10] MEDS: IPRATROPIUM BR 0.02% INH SOLN 0.5 MG/2.5 ML VIAL INHALATION ×2 (02:13→07:58)
[2021-08-10 02:25] VITALS: PULSE 69; RESP 18
[2021-08-10 06:00] VITALS: BP 196/59; PULSE 73; RESP 18; TEMP 36.3; O2SAT 96
[2021-08-10 07:26] LABS: Glucose Point of Care 83 mg/dl (65-105)
[2021-08-10 07:58] VITALS: PULSE 65; RESP 18
[2021-08-10 08:02] VITALS: O2SAT 95
[2021-08-10 08:07] VITALS: PULSE 68; RESP 18
[2021-08-10] MEDS: GLIMEPIRIDE 1 MG TABLET PO (08:42)
[2021-08-10] MEDS: predniSONE 20 MG TABLET 60 MG PO (08:42)
[2021-08-10] MEDS: DOCUSATE SODIUM 100 MG CAPSULE PO (08:42)
[2021-08-10] MEDS: ASPIRIN 81 MG ENTERIC TABLET 162 MG PO (08:43)
[2021-08-10] MEDS: BENZONATATE 100 MG CAPSULE 200 MG PO (08:43)
[2021-08-10] MEDS: METOPROLOL TARTRATE 50 MG TAB PO (08:43)
[2021-08-10] MEDS: guaiFENesin 12 HR 600 MG TABCR PO (08:43)
[2021-08-10] MEDS: ATORVASTATIN 20 MG TABLET PO (08:43)
[2021-08-10] MEDS: lisinopriL 5 MG TABLET 15 MG PO (08:43)
[2021-08-10] MEDS: ENOXAPARIN 40 MG/0.4 ML SYRINGE SUB-Q (08:44)
--- NOTE | 2021-08-10 11:09 | PM.DS ---
DS: Admitting Diagnosis Discharge Date August 10, 2021 Admitting Diagnosis Community-acquired pneumonia DS: Discharge Diagnosis Discharge Diagnosis (1) Pneumonia: Qualifiers: Laterality: unspecified laterality Lung location: lower lobe of lung Pneumonia type: due to unspecified organism Qualified Code(s): J18.9 - Pneumonia, unspecified organism Code(s): J18.9 - Pneumonia, unspecified organism Status: Acute (2) Insulin dependent type 2 diabetes mellitus: Code(s): E11.9 - Type 2 diabetes mellitus without complications; Z79.4 - halfway (current) use of insulin Status: Acute (3) Chronic kidney disease, stage 3a: Code(s): N18.31 - Chronic kidney disease, stage 3a Status: Acute DS: Summary Hospital Course Reason for hospitalization: Cough and shortness of breath Hospital Course: 75-year-old male with past medical history significant for diabetes, hypertension, hyperlipidemia and kidney disease presented cough and shortness of breath week or so. He has also noted fevers, cough productive of sputum, shortness of breath with wheezing and decreased appetite. He stated he also had the symptoms when he had COVID pneumonia about a year ago. Called his doctor who prescribed antibiotic but he has not got any better in the last 2 days. He was started on Rocephin and azithromycin. Legionella and pneumococcal antigens were sent. He was started on breathing treatments and a flutter valve. He was noted to be somewhat hypoxic and required supplemental oxygen. He was given gentle hydration and his home insulin dose was continued as well as a sliding scale. His shortness of breath resolved and he was able to be weaned to room air. However, his cough and wheezing continued. Therefore, he is placed on a prednisone burst. His Lantus dose actually need a decreased while he was hospitalized. Thought to be due to his improved diet in the hospital as opposed to what he needs at home. His cough and wheezing significantly improved with the prednisone and he was discharged on prednisone, Augmentin and azithromycin. Will follow up outpatient with his family doctor. Status at Discharge Functional status at discharge: independent ambulation Overall status at discharge: patient is progressing back to baseline Time Spent with Patient Time attestation: Total time spent providing and/or coordinating discharge services: Exam Const: General: no acute distress HENMT: Mouth: Yes moist mucous membranes Eyes: General: appearance normal, both eyes and all related structures Resp: Effort & Inspection: normal respiratory effort Auscultation: wheezes and diminished lung sounds Cardio: Rate: regular rate Rhythm: regular rhythm GI: GI Palp: Yes Soft to palpation and No Tenderness to palpation present (GI) DS: Data Data Completed and Pending Labs on day of discharge: Labs from last 24 hours 08/10/21 08/09/21 08/09/21 07:19 20:30 16:20 POC Capillary Glucose 83 155 H 112 H 08/09/21 11:31 POC Capillary Glucose 130 H Preliminary micro results at discharge 08/07/21 11:08 Blood Culture - Preliminary Blood 08/07/21 11:08 Blood Culture - Preliminary Blood Discharge Plan Discharge Attending physician on discharge: Annika Le Discharging Clinician: Annika Le Anticipated Discharge Date/Time: 08/10/21 10:59 Patient Disposition: Home, Self-Care Activity: as tolerated Diet: as tolerated Patient Instructions: Antibiotic Form, Pneumonitis (GEN) Stand Alone Forms: General Discharge Information Follow-up/Referrals: Irving Herndon MD [Primary Care Provider] - Discharge Medications: New prednisone 20 mg Tablet 60 mg PO DAILY@0800 3 Days Qty: 3 RF: 0 azithromycin 250 mg tablet 250 mg PO DAILY 2 Days Qty: 2 RF: 0 amoxicillin-pot clavulanate 875-125 mg tablet 1 tablet PO Q12H 3 Days Qty: 6 RF: 0 Continued metformin 500 mg
[2021-08-10 23:01] LABS: Pneumococcal Antigen Urine Not Detected (Not Detected)
[2021-08-11 16:24] LABS: Legionella pneumophila Ag Ur Not Detected (Not Detected)
== END 2021-08-10 12:00 | disposition home or self-care (01) | DRG 194 ==
LOC: ANHED 12:35 → ANH3MEDSUR 15:44
PROVIDERS: Emergency Medicine; Physician Assistant; Admitting Provider Family Medicine; Emergency Provider Nurse Practitioner Family; PCP Family Medicine Adolescent Medicine; Visit Provider Student in an Organized Health Care Education/Training Program
DX: J18.9 Pneumonia, unspecified organism (principal); N18.4 Chronic kidney disease, stage 4 (severe); R09.02 Hypoxemia; E11.22 Type 2 diabetes mellitus with diabetic chronic kidney disease; D63.8 Anemia in other chronic diseases classified elsewhere; I12.9 Hypertensive chronic kidney disease with stage 1 through stage 4 chronic kidney disease, or unspecified chronic kidney disease; E78.2 Mixed hyperlipidemia; D63.1 Anemia in chronic kidney disease; I65.22 Occlusion and stenosis of left carotid artery; Z20.822 Contact with and (suspected) exposure to COVID-19; Z86.16 Personal history of COVID-19; Z79.899 Other long term (current) drug therapy; Z79.4 Long term (current) use of insulin; Z79.82 Long term (current) use of aspirin; Z79.84 Long term (current) use of oral hypoglycemic drugs
CPT/HCPCS: 36415; 36600; 71046; 80048; 80053; 82805; 82948; 83036; 83735; 85025; 85027; 87040; 87070; 87205; 87449; 87502; 87899; 93005; 94618; 94640; 94667; 94668; 96365; 96375; 99285; A9270; C9803; J0456; J0696; J1650; J1815; J2930; J7030; J7120; J7512; U0003; U0005

== ENCOUNTER 2022-03-05 17:20 | Emergency (ER) | payer MEDICARE, SELFPAY ==
--- NOTE | ~2022-03-05 | XR_ITS ---
EXAMINATION: XR chest 2V DATE: 03/05/2022 17:57 INDICATION: 2 weeks of productive cough TECHNIQUE: PA and lateral views of the chest were obtained. COMPARISON: Chest radiograph dated 08/07/2021 FINDINGS: Increased lucency in the upper lung zones with some architectural distortion suggestive but not diagn ostic of emphysema. Linear atelectasis/scarring at the left midlung zone. Additional subtle more patc hy airspace opacities in the bilateral lower lung zones. No pulmonary edema, pleural effusion or pneu mothorax. The cardiomediastinal silhouette is normal. Mild thoracic spondylosis. IMPRESSION: 1. Subtle opacities in the bilateral lower lung zones which could represent atelectasis or pneumonia. 2. Increased lucency and some architectural distortion in the upper lung zones suggestive but not nancy gnostic of emphysema. Reviewed, dictated and finalized at location A. KER AND COOKIE MACHINE OPERATOR IMPRESSION: 1. Subtle opacities in the bilateral lower lung zones which could represent ate lectasis or pneumonia. 2. Increased lucency and some architectural distortion in the upper lung zones suggestive but not diagnostic of emphysema.
[2022-03-05 17:31] VITALS: BP 200/90
[2022-03-05 17:32] VITALS: BP 225/85; PULSE 86; RESP 16; TEMP 36.6; O2SAT 96
--- NOTE | 2022-03-05 17:59 | ED.GENADULT ---
HPI - General Adult General Chief complaint: Upper Respiratory Infection Stated complaint: cough Time Seen by Provider: 03/05/22 17:59 Source: patient, RN notes reviewed and old records reviewed Mode of arrival: ambulatory Limitations: no limitations History of Present Illness HPI narrative: 76-year-old male presents to the [facility] with complaints of cough for at least 2 weeks. Reports a productive cough that has been getting worse over the last 2 weeks. Has been taking Coricidin HBP HBP, guaifenesin cough medicine, other geoc-knq-itwthct medications. Patient has a history of diabetes and hypertension. Has an appointment with kidney doctor on Tuesday. Patient states that his blood pressure is always high. States that he does not have any chest pain, shortness of breath, headache, blurry vision. Patient is declining transfer to the ER. Related Data Home Medications Medication Instructions Recorded Confirmed aspirin 81 mg tablet,delayed 162 mg PO DAILY 05/27/21 03/05/22 release (Adult Low Dose Aspirin) docusate sodium 100 mg capsule 100 mg PO DAILY 08/07/21 03/05/22 (Colace) glimepiride 1 mg tablet 1 mg DAILY 03/05/22 03/05/22 insulin glargine 100 unit/mL (3 100 unit DIRECTED 03/05/22 03/05/22 mL) subcutaneous pen (Lantus Solostar U-100 Insulin) Allergies Allergy/AdvReac Type Severity Reaction Status Date / Time No Known Allergies Allergy Verified 03/05/22 17:46 Review of Systems Review of Systems: All systems reviewed & are unremarkable except as noted in HPI and below Constitutional: Constitutional: Reports no additional constitutional complaints, Denies chills and Denies fever(s) Eyes: Eyes: Reports no additional eye complaints ENT: Reports system reviewed and no additional complaints, except as documented Cardiovascular: Cardiovascular: Reports no additional cardiovascular complaints Respiratory: Respiratory: Reports as per HPI, Denies chest congestion, Reports cough, Reports dyspnea and Denies wheezing Gastrointestinal: Gastrointestinal: Reports no additional gastrointestinal complaints Musculoskeletal: Musculoskeletal: Reports no additional musculoskeletal complaints Integumentary/Breasts: Skin/Breast: Reports system reviewed and no additional complaints, except as docu Neurologic: Reports system reviewed and no additional complaints, except as documented Psychiatric: Psychiatric: Reports no additional psychiatric complaints Allergic/Immunologic: Allergic/Immunologic: Reports no additional allergic/immunologic complaints PMFSH Past Medical History Medical History Anemia of chronic disease Aortic atherosclerosis Noted on CT in 10/2011. Chronic kidney disease, stage 4 (severe) Creatinine ranges between 2.10 and 2.60. COVID-19 (12/2020) Hospitalized at that time with pneumonia. Hypertension Insulin dependent type 2 diabetes mellitus Hemoglobin A1c was 8.5% in May 2021. Mixed hyperlipidemia Occlusion and stenosis of left carotid artery 50% stenosis on ultrasound in 2014. Surgical History Surgical History History of appendectomy History of colonoscopy (08/04/15) Revealed internal hemorrhoids. Family History Family History Father Diabetes mellitus Hypertension Social History Social History Social History: . Lives with his in [place]. 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 He smoked a pack of cigarettes a day for 10 years and quit about 50 years ago. No alcohol or illicit substance use. He designates his , Denise Chen, as his surrogate decision maker. Smoking status: Former smoker Spiritual care concerns: No Agree to blood products: Yes Comments At the time of my signature, I reviewed and mackenzie
[2022-03-05 18:30] VITALS: BP 180/82
== END 2022-03-05 18:30 | disposition home or self-care (01) ==
PROVIDERS: Emergency Provider Nurse Practitioner; PCP Family Medicine Adolescent Medicine
DX: J18.9 Pneumonia, unspecified organism (principal); I12.9 Hypertensive chronic kidney disease with stage 1 through stage 4 chronic kidney disease, or unspecified chronic kidney disease; E11.22 Type 2 diabetes mellitus with diabetic chronic kidney disease; N18.4 Chronic kidney disease, stage 4 (severe); Z79.4 Long term (current) use of insulin; E78.2 Mixed hyperlipidemia; I70.0 Atherosclerosis of aorta; I65.22 Occlusion and stenosis of left carotid artery; Z87.891 Personal history of nicotine dependence; Z79.82 Long term (current) use of aspirin
CPT/HCPCS: 71046; 99213; G0463

== ENCOUNTER 2022-06-11 15:11 | Observation (INO) | payer MEDICARE, SELFPAY ==
--- NOTE | ~2022-06-11 | CT_ITS ---
EXAMINATION: CTA brain carotid DATE: 06/11/2022 15:53 INDICATION: Left eye visual loss. TECHNIQUE: Computed tomographic angiography (CTA) of the head was performed without and with 100 mL O mnipaque-350 intravenous contrast. CTA of the neck was performed with intravenous contrast. Automated exposure control and iterative reconstruction technique were employed. The dose-length product was 1 796.69 mGy-cm. Maximum intensity projection and volume rendered 3D-reconstructions were created by reuben oneal technologist on a separate workstation. COMPARISON: None. FINDINGS: HEAD CTA: There are scattered areas of low attenuation in the cerebral white matter, which is within normal limits for the patient's age. There is no intracranial hemorrhage, acute infarction, or abnorm al intracranial mass lesion. The ventricles are normal in size. There is mild mucosal thickening in t he paranasal sinuses. The mastoid air cells are normal. The orbits are normal. Right vertebral artery is dominant. There is no significant stenosis of basilar artery or the posterior cerebral arteries. There is mild stenosis of the intracranial internal carotid arteries. Right A1 anterior cerebral andrew ry segment is small or absent. There is no significant stenosis of the middle cerebral arteries. Ante rior communicating artery is normal. Posterior communicating arteries are not identified. There is no aneurysm. NECK CTA: The lungs demonstrate mild atelectasis. There are nodules in the thyroid measuring up to 5 mm, cannot clinically significant. There are no pathologically enlarged lymph nodes. There is no sign ificant stenosis of the vertebral arteries. There is plaque in the proximal internal carotid arteries . There is 48% stenosis of the proximal right internal carotid artery relative to normal distal arter y lumen diameter (NASCET criteria). There is 45% stenosis of the proximal left internal carotid arter y relative to normal distal artery lumen diameter. There is moderate cervical spondylosis. IMPRESSION: 1. Normal aging brain. 2. No aneurysm or significant intracranial arterial stenosis. 3. 48% stenosis of the proximal right internal carotid artery relative to normal distal artery lumen diameter (NASCET criteria). 4. 45% stenosis of the proximal left internal carotid artery relative to normal distal artery lumen d iameter. Reviewed, dictated and finalized at location A. CULTURAL TECHNICIAN IMPRESSION: 1. Normal aging brain. 2. No aneurysm or significant intracranial arterial stenosis. 3. 48% stenosis of the proximal right internal carotid artery relative to jewel l distal artery lumen diameter (NASCET criteria). 4. 45% stenosis of the proximal left internal carotid artery relative to normal distal artery lumen diameter.
--- NOTE | ~2022-06-11 | MR_ITS ---
EXAMINATION: MR brain/brain stem wo con DATE: 06/12/2022 07:44 INDICATION: Transient ischemic attack. TECHNIQUE: Magnetic resonance imaging (MRI) of the brain and brainstem was performed without intraven ous contrast. COMPARISON: Head CT 06/11/2022 FINDINGS: There are scattered areas of nonspecific increased T2-weighted signal intensity in the cere bral white matter and kel[place]. There is a 6 mm lipoma posterior to the midbrain on the right. There is n o acute ischemic infarct or intracranial hemorrhage. The ventricles are normal in size. The mastoid a ir cells are normal. There is mild mucosal thickening in the paranasal sinuses. There is a mucous ret ention cyst in right maxillary sinus. The orbits are normal. IMPRESSION: 1. Mild nonspecific cerebral white matter disease and pontine disease, which likely represents chroni c small vessel ischemic disease. Reviewed, dictated and finalized at location A. CLUB MANAGER IMPRESSION: 1. Mild nonspecific cerebral white matter disease and pontine disease, which darcy hall represents chronic small vessel ischemic disease.
--- NOTE | ~2022-06-11 | US_ITS ---
EXAMINATION: US renal BI DATE: 06/12/2022 10:46 INDICATION: Acute on chronic renal failure. TECHNIQUE: Multiple ultrasound grayscale images of the kidneys were obtained. COMPARISON: None. FINDINGS: The right kidney measures 10.6 x 6.7 x 4.3 cm. The left kidney measures 11.1 x 5.1 x 3.5 cm. The kidn eys demonstrate normal parenchymal echogenicity. There is no hydronephrosis. The bladder is normal. IMPRESSION: 1. Normal kidneys. No hydronephrosis. Reviewed, dictated and finalized at location A. TENANCE MECHANIC
[2022-06-11 15:15] VITALS: BP 206/100; PULSE 80; RESP 16; TEMP 36.6; O2SAT 99
--- NOTE | 2022-06-11 15:31 | ECG_ITS ---
Measurements Intervals [place] Rate: 91 P: 47 IN: 167 QRS: -74 QRSD: 142 T: 69 QT: 367 QTc: 453 Interpretive Statements SINUS RHYTHM RIGHT BUNDLE BRANCH BLOCK LEFT ANTERIOR FASCICULAR BLOCK LEFT VENTRICULAR HYPERTROPHY AND ST-T CHANGE ABNORMAL ECG COMPARED TO ECG 08/07/2021 10:24:00 SINUS RHYTHM NOW PRESENT LEFT VENTRICULAR HYPERTROPHY NOW PRESENT Electronically Signed On 06-12-2022 6:37:13 HYPERBARIC TECHNOLOGIST by Sebastien Giron D.O.
--- NOTE | 2022-06-11 15:34 | ED.EYEPROB ---
HPI - Eye Problem General Chief complaint: Eye Problems Stated complaint: lost vision in left eye Time Seen by Provider: 06/11/22 15:27 History of Present Illness HPI Narrative: Patient is a 76-year-old male with a history of hyperlipidemia, diabetes, hypertension presenting with painless vision loss. Patient states that he went to bed last night around 9:30 PM in his normal state of health. States he woke up this morning with vision loss in his left eye. States that all he sees is charcoal jhaveri. States he can see some movement. He called his eye doctor who could not get him in until Tuesday so they advised to come to the ER. Patient denies any other symptoms. No numbness or weakness, no eye pain, no tearing, no speech changes, no headache. Related Data Home Medications Medication Instructions Recorded Confirmed docusate sodium 100 mg capsule 100 mg PO DAILY PRN Constipation 08/07/21 06/11/22 (Colace) glimepiride 1 mg tablet 1 mg DAILY 03/05/22 06/11/22 insulin glargine 100 unit/mL (3 56 unit subcut DAILY 03/05/22 06/11/22 mL) subcutaneous pen (Lantus Solostar U-100 Insulin) amlodipine 5 mg tablet 5 mg PO DAILY 06/11/22 06/11/22 Allergies Allergy/AdvReac Type Severity Reaction Status Date / Time No Known Allergies Allergy Verified 06/11/22 15:32 Review of Systems Review of Systems: All systems reviewed & are unremarkable except as noted in HPI and below PMFSH Past Medical History Medical History Anemia of chronic disease Aortic atherosclerosis Noted on CT in 10/2011. Chronic kidney disease, stage 4 (severe) Creatinine ranges between 2.10 and 2.60. COVID-19 (12/2020) Hospitalized at that time with pneumonia. Hypertension Insulin dependent type 2 diabetes mellitus Hemoglobin A1c was 8.5% in May 2021. Mixed hyperlipidemia Occlusion and stenosis of left carotid artery 50% stenosis on ultrasound in 2014. Surgical History Surgical History History of appendectomy History of colonoscopy (08/04/15) Revealed internal hemorrhoids. Family History Family History Father Diabetes mellitus Hypertension Social History Social History Social History: he is and Lives with his in [place]. 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 He smoked a pack of cigarettes a day for 10 years and quit about 50 years ago. No alcohol or illicit substance use. He designates his , Denise Chen, as his surrogate decision maker. code status full code Smoking packs per day: 0.5 Smoking cigarettes per day: 10.0 Years smoked: 10 Smoking pack-years: 5.00 Smoking status: Former smoker Alcohol intake: never Substance use: never Substance use type: does not use Lack of Transportation: No Lack of Food: Never True Current Housing: I Have Housing Concerned About Future Housing: No Difficulty Paying Gas/Electric Bills: No Difficulty Paying for Meds: No Currently Unemployed: No Education: High School Diploma/GED Difficulty w/ Childcare or Family Care: No Living arrangements: with family Occupation/Education: retired Spiritual care concerns: No Agree to blood products: Yes Exam Narrative: GENERAL: Well-appearing, well-nourished, and in no acute distress. HEAD: Normocephalic, atraumatic. EYES: R pupil reactive, left pupil is minimally reactive with light in either eye; patient is able to detect movement in the left eye ENT: Nares clear, no rhinorrhea or epistaxis. Mucous membranes moist. NECK: Supple. CHEST: Clear to auscultation. No respiratory distress. HEART: Regular rate and rhythm. No murmur heard ABDOMEN: Soft, nontender, nondistended EXTREMITIES: Normal range of motion. No edema. SKIN: Warm, dry, no tremayne
[2022-06-11 15:44] LABS: Basophils Absolute Auto 0.1 K/mm3 (0.0-0.1); Basophils Percent Auto 1.1 % (0.2-1.2); Eosinophils Absolute Auto 0.4 K/mm3 (0-0.3); Eosinophils Percent Auto 3.6 % (0-4.4); Hematocrit 36.5 % (42.0-52.0); Hemoglobin 11.4 g/dL (14.0-18.0); Immature Granulocyte Absolute 0.06 K/mm3 (0.00-0.031); Immature Granulocyte Percent A 0.5 % (0-0.5); Lymphocytes Absolute Auto 2.13 K/mm3 (0.9-3.2); Lymphocytes Percent Auto 17.9 % (18.3-44.2); Mean Corpuscular HGB Conc 31.2 g/dl (32-36); Mean Corpuscular Hemoglobin 30.2 pg (26-34); Mean Corpuscular Volume 96.8 fl (80-100); Mean Platelet Volume 11.2 fl (7.4-10.4); Monocytes Absolute Auto 0.9 K/mm3 (0.1-0.6); Monocytes Percent Auto 7.9 % (2.6-8.5); Neutrophils Absolute Auto 8.2 K/mm3 (1.3-6.7); Platelet Count Result 416 k/mm3 (150-375); Red Blood Count 3.77 M/mm3 (4.6-6.20); Red Cell Distribution Width 13.2 % (11.5-14.5); White Blood Count 11.9 K/mm3 (4.5-10.0)
[2022-06-11 15:45] LABS: Estimated Glomerular Filt Rate 18
[2022-06-11 15:56] LABS: Prothrombin Time 12.6 Seconds (11.1-14.7)
[2022-06-11 15:57] LABS: Alanine Aminotransferase 22 U/L (6-50); Albumin Level 4.2 g/dL (3.5-5.1); Alkaline Phosphatase 98 U/L (38-126); Anion Gap 8 mmol/L (8-16); Aspartate Amino Transferase 23 U/L (17-59); Bilirubin,Total 0.4 mg/dL (0.2-1.3); Blood Urea Nitrogen 31 mg/dL (9-20); Carbon Dioxide 25 mmol/L (22-30); Chloride 109 mmol/L (98-107); Estimated Glomerular Filt Rate 21; Glucose 160 mg/dL (65-110); Partial Thromboplastin Time 26.8 SECONDS (22.3-36.8); Potassium 4.4 mmol/L (3.4-5.0); Sodium 142 mmol/L (137-145)
[2022-06-11 18:13] VITALS: BP 208/100; PULSE 93; RESP 16; O2SAT 99
[2022-06-11 18:16] VITALS: BMI 70.4
--- NOTE | 2022-06-11 18:19 | ADMGEN ---
This patient, Vinayak Chen, was admitted to [facility] Room 312-01. Patient/family oriented to hospital policies and general routines including ID bracelet, bed and alarms, visiting hours, pain management, procedures, bathroom and other care routines, personal items, smoking policy, room service/diet, and visiting hours. Information on how to activate the Rapid Response Team has been discussed. Patient/Family are encouraged to report perceived risks to care and to ask questions if they do not understand what they are told or what they should do.
[2022-06-11 20:00] VITALS: PULSE 91
[2022-06-11 20:20] LABS: Troponin I 0.035 ng/mL (0.000-0.034)
--- NOTE | 2022-06-11 20:51 | PM.IMHP ---
H&P: HPI History of Present Illness Date/Time: 06/11/22 20:51 Chief Complaint: visual problem Narrative: this is a 76-year-old male patient who has a history of hyperlipidemia, diabetes and hypertension. The patient stated that he had normal vision last night when he went to bed at 9:30 a.m.. However the patient woke up this morning it felt like something was wrong. He went to the bathroom to wash his face and felt that his vision was off on the left eye. He stated that his vision is very demented looks like a jhaveri Charcot but he is able to see some images. The patient called his eye doctor who could not get him into Tuesday and he was advised to go to the ER. The patient has no other symptoms. He has no pain is I or headache. He has no focal weakness. His white count is 11.9. H&H 11.4 And 36.5. patient's creatinine is 3. 0 and then 3.3. One year ago was 2.3. Blood sugar 172. Troponin was nonreactive and repeat was 0.035. The patient takes an aspirin and took it at home. Head neck CTA was read as the following. Normal aging brain. 2. No aneurysm or significant intracranial arterial stenosis. 3. 48% stenosis of the proximal right internal carotid artery relative to normal distal artery lumen diameter (NASCET criteria). 4. 45% stenosis of the proximal left internal carotid artery relative to normal distal artery lumen diameter. neurology has been consulted. The patient is being admitted for observation status on the date of service of 06/11/2022. Review of Systems Review of Systems: See HPI All systems reviewed & are unremarkable except as noted in HPI and below Constitutional: Constitutional: Reports as per HPI and Reports no additional constitutional complaints Eyes: Eyes: Reports as per HPI and Reports no additional eye complaints ENT: Reports system reviewed and no additional complaints, except as documented and Reports Normal hearing present Cardiovascular: Cardiovascular: Reports no additional cardiovascular complaints Respiratory: Respiratory: Reports no additional respiratory complaints and Reports no additional respiratory complaints Gastrointestinal: Gastrointestinal: Reports as per HPI and Reports no additional gastrointestinal complaints Musculoskeletal: Musculoskeletal: Reports no additional musculoskeletal complaints Integumentary/Breasts: Skin/Breast: Reports system reviewed and no additional complaints, except as docu and Reports as per HPI Neurologic: Reports system reviewed and no additional complaints, except as documented, Reports as per HPI and Reports Normal hearing present Psychiatric: Psychiatric: Reports no additional psychiatric complaints and Reports as per HPI Endocrine: Endocrine: Reports no additional endocrine complaints Hematologic/Lymphatic: Hematologic/Lymphatic: Reports no additional hematologic/lymphatic complaints Allergic/Immunologic: Allergic/Immunologic: Reports no additional allergic/immunologic complaints [facility] Past Medical History Medical History Anemia of chronic disease Aortic atherosclerosis Noted on CT in 10/2011. Chronic kidney disease, stage 4 (severe) Creatinine ranges between 2.10 and 2.60. COVID-19 (12/2020) Hospitalized at that time with pneumonia. Hypertension Insulin dependent type 2 diabetes mellitus Hemoglobin A1c was 8.5% in May 2021. Mixed hyperlipidemia Occlusion and stenosis of left carotid artery 50% stenosis on ultrasound in 2014. Surgical History Surgical History History of appendectomy History of colonoscopy (08/04/15) Revealed internal hemorrhoids. Family History Family History Father Diabetes mellitus Hypertension Social History Social History (Updated 06/12/22 @ 00:52 by Neeta Guevara NP) Social History: he is and Lives with his in [place]
[2022-06-11 22:00] VITALS: BP 172/89; PULSE 93; RESP 20; TEMP 36.3; O2SAT 97
[2022-06-11 22:31] LABS: Glucose Point of Care 172 mg/dl (65-105)
[2022-06-12] VITALS (7 sets, daily range): BP systolic 145–167; BP diastolic 61–76; PULSE 70–100; RESP 16–18; TEMP 36.4–36.8; O2SAT 97–98
--- NOTE | 2022-06-12 | ECHO_ITS ---
Patient Info Name: Vinayak Chen Age: 76 years : 1945 Gender: Male Ht: 68 in Wt: 210 lbs BSA: 2.17 m2 HR: 87 bpm BP: 167 / 76 mmHg Technical Quality: Fair Exam Date: 06/12/2022 9:25 AM Exam Location: [facility] Patient Status: Inpatient Admit Date: 06/11/2022 Staff Ordering Physician: Neeta Guevara NP Operations Scheduler: Negin Connell RDCS Attending Provider: George Paniagua MD Referring Physician: Paola ZIMMERMAN; Exam Type: CA echo dop bubble study w con Study Info Indications R29.5 - Transient paralysis Complete two-dimentional, color flow and Doppler transthoracic echocardiogram is performed with agitated saline and with contrast to opacify the left ventricle and to improve the delineation of the left ventricle endocardial borders. Contrast/Agitated Saline Contrast/Ag. Saline: Agitated Saline Amount: 4.00 ml Contrast/Ag. Saline: Agitated Saline Amount: 10.00 ml Summary 1. Left ventricular chamber dimension is normal. 2. Definity contrast administered improved wall motion interpretation. 3. Left ventricular systolic function is normal, estimated at 65-70%. 4. There is moderate concentric increased left ventricular wall thickness. 5. The left ventricular diastolic function is grade I diastolic dysfunction. 6. E/e' 17 is elevated. 7. Left atrial chamber dimension is moderately enlarged. 8. There is mild aortic valve sclerosis. 9. There is mild aortic valve regurgitation. 10. There is trace tricuspid valve regurgitation. 11. No pulmonary hypertension, estimated pulmonary arterial systolic pressure is 39 mmHg. 12. There is small circumferential pericardial effusion. Left Ventricle E/e' 17 is elevated. Definity contrast administered improved wall motion interpretation. Left ventricular chamber dimension is normal. Left ventricular systolic function is normal, estimated at 65-70%. There is moderate concentric increased left ventricular wall thickness. The left ventricular diastolic function is grade I diastolic dysfunction. Right Ventricle Right ventricular systolic function is normal and with normal TAPSE 1.9 cm. Right ventricular chamber dimension is normal. Left Atria Left atrial chamber dimension is moderately enlarged. Right Atria Right atrial chamber dimension is normal. Atrial Septum Agitated saline injection with and without valsalva maneuver opacified right side cardiac chambers without shunt to left side cardiac chambers. Intact interatrial septum visualized by 2D and agitated saline imaging. Aortic Valve The aortic valve is trileaflet. There is mild aortic valve sclerosis. There is no aortic valve stenosis. There is mild aortic valve regurgitation. Pulmonic Valve There is no pulmonic regurgitation. Mitral Valve There is no mitral valve stenosis. There is no mitral valve regurgitation. Tricuspid Valve There is trace tricuspid valve regurgitation. No pulmonary hypertension, estimated pulmonary arterial systolic pressure is 39 mmHg. Pericardium/Pleural No cardiac tamponade. There is small circumferential pericardial effusion. Inferior Vena Cava Normal inferior vena cava with >50% collapse upon inspiration consistent with normal right atrial pressure, 5 mmHg. Aorta The aortic root size at the sinus of Valsalva is normal. Left Ventricular Outflow Tract
[2022-06-12] MEDS: SODIUM CHLORIDE 0.9% IV 1,000 ML 100 ML IV CONT (02:26)
[2022-06-12 07:12] LABS: Basophils Absolute Auto 0.1 K/mm3 (0.0-0.1); Basophils Percent Auto 1.4 % (0.2-1.2); Eosinophils Absolute Auto 0.4 K/mm3 (0-0.3); Eosinophils Percent Auto 4.1 % (0-4.4); Hematocrit 32.2 % (42.0-52.0); Hemoglobin 9.9 g/dL (14.0-18.0); Immature Granulocyte Absolute 0.04 K/mm3 (0.00-0.031); Immature Granulocyte Percent A 0.4 % (0-0.5); Lymphocytes Absolute Auto 1.43 K/mm3 (0.9-3.2); Lymphocytes Percent Auto 15.4 % (18.3-44.2); Mean Corpuscular HGB Conc 30.7 g/dl (32-36); Mean Corpuscular Hemoglobin 29.9 pg (26-34); Mean Corpuscular Volume 97.3 fl (80-100); Mean Platelet Volume 11.4 fl (7.4-10.4); Monocytes Absolute Auto 0.9 K/mm3 (0.1-0.6); Monocytes Percent Auto 9.5 % (2.6-8.5); Neutrophils Absolute Auto 6.4 K/mm3 (1.3-6.7); Neutrophils Percent Auto 69.2 % (45.5-73.1); Platelet Count Result 364 k/mm3 (150-375); Red Blood Count 3.31 M/mm3 (4.6-6.20); Red Cell Distribution Width 13.1 % (11.5-14.5); White Blood Count 9.3 K/mm3 (4.5-10.0)
[2022-06-12 07:21] LABS: Lactic Acid Reflex 0.8 mmol/L (0.7-2.0)
[2022-06-12 07:25] LABS: Hemoglobin A1C 7.3 % (<5.7)
[2022-06-12 07:26] LABS: Alanine Aminotransferase 20 U/L (6-50); Albumin Level 3.5 g/dL (3.5-5.1); Alkaline Phosphatase 84 U/L (38-126); Anion Gap 5 mmol/L (8-16); Aspartate Amino Transferase 22 U/L (17-59); Bilirubin,Total 0.4 mg/dL (0.2-1.3); Blood Urea Nitrogen 30 mg/dL (9-20); Calcium 8.4 mg/dL (8.4-10.2); Carbon Dioxide 25 mmol/L (22-30); Chloride 111 mmol/L (98-107); Estimated CRCL calculation 36 ml/min; Estimated Glomerular Filt Rate 21; Glucose 136 mg/dL (65-110); Magnesium 1.9 mg/dL (1.6-2.3); Phosphorus 3.8 mg/dL (2.5-4.5); Potassium 4.7 mmol/L (3.4-5.0); Sodium 141 mmol/L (137-145)
--- NOTE | 2022-06-12 07:29 | PC.NURSE ---
to MRI per w/c. iv saline lock. tele on hold
--- NOTE | 2022-06-12 07:53 | PC.NURSE ---
patient returned to room from MRI
[2022-06-12 08:01] LABS: Glucose Point of Care 133 mg/dl (65-105)
[2022-06-12] MEDS: ATORVASTATIN 20 MG TABLET PO (08:12)
[2022-06-12] MEDS: GLIMEPIRIDE 1 MG TABLET BY MOUTH (08:12)
[2022-06-12] MEDS: METOPROLOL TARTRATE 50 MG TAB PO (08:12)
[2022-06-12] MEDS: amLODIPine BESYLATE 5 MG TABLET PO (08:12)
[2022-06-12] MEDS: ASPIRIN 81 MG ENTERIC TABLET 162 MG PO (08:12)
[2022-06-12] MEDS: INSULIN GLARGINE (*BKC) 100 UNITS/ML 56 UNITS SUB-Q (08:13)
[2022-06-12] MEDS: PERFLUTREN LIPID MICROSPHERES 1.5 ML VIAL DILUTED TO 10 ML TOTAL VOLUME IV PUSH (09:25)
[2022-06-12 10:28] LABS: Appearance Urine Clear (Clear); Bacteria Urine None Seen /hpf; Bilirubin Urine Negative (Negative); Blood Urine 1+ (Negative); Color Urine Yellow (Yellow); Glucose Urine UA 1+ mg/dL (Negative); Ketones Urine Negative (Negative); Leukocyte Esterase Ur Negative LEU/UL (Negative); Nitrate Urine Negative (Negative); Non Pathogenic Casts 0-2; Protein Urine 3+ mg/dL (Negative); RBC Urine 0-2 /hpf (0-2); Specific Grav Ur 1.025 (1.001-1.035); Squamous Epithelial Cell Urine None seen /hpf (Few); Urobilinogen Urine 0.2 mg/dL (<2.0); WBC Urine 0-5 /hpf; pH Urine 5.5 (5.0-9.0)
--- NOTE | 2022-06-12 10:29 | WPDNEURCNPN ---
Assessment and Plan Assessment and plan (1) Visual disturbances: Code(s): H53.9 - Unspecified visual disturbance Status: Acute (2) Carotid disease, bilateral: Code(s): I77.9 - Disorder of arteries and arterioles, unspecified Status: Acute (3) Mixed hyperlipidemia: Code(s): E78.2 - Mixed hyperlipidemia Status: Acute (4) Type 2 diabetes mellitus with diabetic chronic kidney disease: Code(s): E11.22 - Type 2 diabetes mellitus with diabetic chronic kidney disease Status: Acute (5) Hypertension: Code(s): I10 - Essential (primary) hypertension Status: Acute Plan Vinayak Chen is a 76 year old male with a history of uncontrolled hyperlipidemia, hypertension, and diabetes presenting with vision changes in the left eye. Concern for possible central retinal artery occlusion given risk factors, and large vessel disease as noted on CTA brain/carotid. MRI negative for acute stroke. - Surface echocardiogram pending - Increase Lipitor to 40mg daily - Add Plavix 75mg x 3 weeks and continue Aspirin 81mg daily - Will need outpatient ophthalmology evaluation early next week Consult date: 06/12/22 Reason for consult: Vision loss HPI: Vinayak Chen is a 76 year old male with a history of hyperlipidemia, hypertension, and diabetes presenting with vision changes in the left eye. Patient woke up yesterday morning with vision looking jhaveri in the left eye. He did not have complete loss of vision but was able to see some images. He called his eye doctor initially, but could not seem him until next week, so he was advised to go to the ER. Patient did not have any other focal symptoms. He denies any pain with the vision change and no headache. On arrival to the ED his labs were unremarkable. CT head was negative for acute process. CTA showed 48% stenosis of the proximal R ICA and 45% stenosis of the proximal left ICA. He was started on his home aspirin. He also takes atorvastatin 25mg daily. His LDL during this admission is 114 and hgb A1c 7.3. EKG showed sinus rhythm. Blood pressure has been in the 160s and 170s. MRI brain is negative for acute stroke. Review of Systems Constitutional: Constitutional: Reports no additional constitutional complaints Eyes: Comments: left eye vision loss ENT: Reports system reviewed and no additional complaints, except as documented Cardiovascular: Cardiovascular: Reports no additional cardiovascular complaints Respiratory: Respiratory: Reports cough Gastrointestinal: Gastrointestinal: Reports no additional gastrointestinal complaints Genitourinary: Genitourinary: Reports no additional male genitourinary complaints Musculoskeletal: Musculoskeletal: Reports no additional musculoskeletal complaints Integumentary/Breasts: Skin/Breast: Reports system reviewed and no additional complaints, except as docu Neurologic: Reports as per HPI Psychiatric: Psychiatric: Reports no additional psychiatric complaints [facility] Past Medical History Medical History Anemia of chronic disease Aortic atherosclerosis Noted on CT in 10/2011. Chronic kidney disease, stage 4 (severe) Creatinine ranges between 2.10 and 2.60. COVID-19 (12/2020) Hospitalized at that time with pneumonia. Hypertension Insulin dependent type 2 diabetes mellitus Hemoglobin A1c was 8.5% in May 2021. Mixed hyperlipidemia Occlusion and stenosis of left carotid artery 50% stenosis on ultrasound in 2014. Surgical History Surgical History History of appendectomy History of colonoscopy (08/04/15) Revealed internal hemorrhoids. Family History Family History Father Diabetes mellitus Hypertension Social History Social History Social History: he is and Lives with his i
[2022-06-12 10:36] LABS: Add Urine Microscopic? YES
[2022-06-12 10:38] LABS: Amphetamine Screen Urine Negative (Negative); Barbiturate Screen Urine Negative (Negative); Benzodiazepines Screen Urine Negative (Negative); Cannabinoid Screen Urine Negative (Negative); Cocaine Screen Urine Negative (Negative); Methadone Screen Urine Negative (Negative); Opiate Screen Urine Negative (Negative); Phencyclidine Screen Urine Negative (Negative)
[2022-06-12 11:12] LABS: Glucose Point of Care 188 mg/dl (65-105)
--- NOTE | 2022-06-12 12:47 | PM.CNNEP ---
Assessment and Plan Assessment and plan (1) Chronic kidney disease, stage IV (severe): Code(s): N18.4 - Chronic kidney disease, stage 4 (severe) Status: Chronic Assessment and Plan: baseline creatinine running around 2.6 - 3.3mg/dl in the last 6 - 7 months was 3.25mg/dl in March 2022 when last seen by Dr. Salazar in clinic based on outpatient evaluation, CKD felt to be secondary to HTN, DM, vascular disease, and age (2) Visual disturbances: Code(s): H53.9 - Unspecified visual disturbance Status: Acute Assessment and Plan: imaging to date noted follow-up on pending imaging Neurology recommendations noted on ASA and plavix as well as statin has outpatient appointment with opthalmology next grabiel (3) Hypertension: Code(s): I10 - Essential (primary) hypertension Status: Acute Assessment and Plan: better control at this time follow trend of hemodynamics (4) Anemia of chronic disease: Code(s): D63.8 - Anemia in other chronic diseases classified elsewhere Status: Acute Assessment and Plan: probably related to CKD and dilution from IVFs follow trend of H/H (5) Type 2 diabetes mellitus with diabetic chronic kidney disease: Code(s): E11.22 - Type 2 diabetes mellitus with diabetic chronic kidney disease Status: Acute Assessment and Plan: follow Accu-Cheks glycemic control as per hospitalist Will continue to follow. History of Present Illness Reason for Consult Consult date: 06/12/22 Reason for consult: chronic renal failure Chief Complaint Chief complaint: Left Eye Vision Loss History of Present Illness Narrative: The patient is a 76-year-old male with a past medical history as outlined below who presented to [facility] Emergency room for further assessment of vision loss in his left eye. According to the patient, the night before presentation, his vision was normal. He went to bed around 9:30 p.m.. When he woke up on the morning of admission, he noted that something was not quite right with his vision. Initially thought it was just because he just woke up and thought it would pass. He went to the bathroom to wash his face and when he was looking Advair it seems that the vision was somewhat off in his left eye. He reports that the vision in his left eye had a gracious Q to it and he was able to see some peripheral images but was unable to see anything centrally. He called his eye doctor who unfortunately could not get admitted until next Tuesday and he was advised to go to the ER given this change in his vision. He reports no other symptoms other than the vision issues with regard to chest pain, shortness of breath, nausea, vomiting, dizziness, lightheadedness or any other subjective symptoms. As already mentioned, at the behest of his eye doctor, he came to the ER for further assessment Workup and evaluation emergency room demonstrated the patient to be hemodynamically stable although he was quite hypertensive in the 200 systolic range. His CBC was mildly elevated and he had some relative anemia as well. His chemistry was significant for creatinine of 3.0 mg /dL with no other critical electrolyte abnormalities. His blood sugar was 172 and his troponin was unimpressive. As part of his evaluation for the concern for possible CVA, I head/neck CTA was done which demonstrated no aneurysm or intracranial arterial stenosis, normal aging brain, 48% stenosis in the proximal right internal carotid artery and 45% stenosis of the proximal left internal carotid artery. The ER physician called ophthalmology at [facility] who recommended admission to the hospital for further assessment of a possible CVA/TIA and there is no need for urgent transfer at this time. He was subsequent admitted to the hospital for further evaluation and therapy as well as Neurology consultation. Renal consultatio
--- NOTE | 2022-06-12 13:40 | PM.DS ---
DS: Admitting Diagnosis Discharge Date 06/12/22 Admitting Diagnosis Left eye visual changes. DS: Discharge Diagnosis Discharge Diagnosis (1) Visual disturbances: Code(s): H53.9 - Unspecified visual disturbance Status: Acute (2) Type 2 diabetes mellitus with diabetic chronic kidney disease: Code(s): E11.22 - Type 2 diabetes mellitus with diabetic chronic kidney disease Status: Acute (3) Hypertensive chronic kidney disease with stage 1 through stage 4 chronic kidney disease, or unspecified chronic kidney disease: Code(s): I12.9 - Hypertensive chronic kidney disease with stage 1 through stage 4 chronic kidney disease, or unspecified chronic kidney disease Status: Acute (4) Occlusion and stenosis of left carotid artery: Code(s): I65.22 - Occlusion and stenosis of left carotid artery Status: Acute (5) Hypertension: Code(s): I10 - Essential (primary) hypertension Status: Acute (6) Anemia of chronic disease: Code(s): D63.8 - Anemia in other chronic diseases classified elsewhere Status: Acute (7) Mixed hyperlipidemia: Code(s): E78.2 - Mixed hyperlipidemia Status: Acute DS: Summary Hospital Course Reason for hospitalization: 76yo male with DM, HTN and CKD here for left eye visual changes. Please see H&P for details. Hospital Course: Patient awoke with left eye visual changes. No other symptoms. The patient called his eye doctor who could not get him into Tuesday and he was advised to go to the ER.? His white count is 11.9.? Hgb 11.4. Creatinine was 3.0 and then 2.9.?Nephrology consulted but felt the the renal function was at baseline. Renal US normal. CTA head and neck showing no aneurysm or significant intracranial arterial stenosis. He did have 40% stenosis on right and 45% stenosis on the left internal carotid artery. Neurology was consulted. Brain MRI showed nonspecific white matter disease but no acute findings. Echocardiogram has been completed but results are pending. Plavix has been added x3 weeks. Creatinine remains stable despite the use of contrast. He had clinical improvement. Lipitor increased to 40 mg daily. Patient overall did well was able to be discharged home on 06/12/2022 with plans to follow-up with ophthalmology. Status at Discharge Cognitive/behavioral status at discharge: stable Time Spent with Patient Time attestation: Total time spent providing and/or coordinating discharge services: 34 minutes Time spent: Greater than 30 minutes Specific discharge activities: discussed with other providers, preparing chart, history and exam Exam Narrative: AF 98.2 167/76 85 16 97% ra Gen - NARD Chest - CTA bilaterally, nml RR CV - RRR S1/S2 Abd - Soft, NT/ND, Positive BS Ext - No pedal edema Neuro - Alert and oriented. Nonfocal exam. Psych - Nml mood and affect Skin - Warm and dry DS: Data Data Completed and Pending Labs on day of discharge: Labs from last 24 hours 06/12/22 06/12/22 06/12/22 11:08 10:15 10:14 WBC RBC Hgb Hct MCV MCH MCHC RDW Plt Count MPV Immature Gran % (Auto) Neut % (Auto) Lymph % (Auto) [place] % (Auto) Eos % (Auto) Baso % (Auto) Lymph # (Auto) [place] # (Auto) Eos # (Auto) Baso # (Auto) Abs Immat Gran (auto) Absolute Neuts (auto) Absolute Nucleated RBC Nucleated RBC % PT INR APTT Sodium Potassium Chloride Carbon Dioxide Anion Gap BUN Creatinine Estim Creat Clear Calc Estimated GFR Glucose POC Capillary Glucose 188 H Hemoglobin A1c Lactic Acid Calcium Phosphorus Magnesium Total Bilirubin AST ALT Alkaline Phosphatase Troponin I Total Protein Albumin TSH (Reflex) Urine Color Yellow Urine Appearance Clear Urine pH 5.5 Ur Specific [place] 1.025 Urine Protein 3+ H Urine Glucose (UA)
== END 2022-06-12 14:49 | disposition home or self-care (01) ==
LOC: ANHED 16:09 → ANH3MEDSUR 18:15
PROVIDERS: Nurse Practitioner; Admitting Provider Hospitalist; Emergency Provider Emergency Medicine; PCP Family Medicine Adolescent Medicine; Visit Provider Internal Medicine
DX: H54.62 Unqualified visual loss, left eye, normal vision right eye (principal); I12.9 Hypertensive chronic kidney disease with stage 1 through stage 4 chronic kidney disease, or unspecified chronic kidney disease; E11.22 Type 2 diabetes mellitus with diabetic chronic kidney disease; D63.1 Anemia in chronic kidney disease; N18.4 Chronic kidney disease, stage 4 (severe); I65.22 Occlusion and stenosis of left carotid artery; E78.2 Mixed hyperlipidemia; K59.00 Constipation, unspecified; E11.65 Type 2 diabetes mellitus with hyperglycemia; I45.2 Bifascicular block; D72.829 Elevated white blood cell count, unspecified; R94.4 Abnormal results of kidney function studies; R90.82 White matter disease, unspecified; I08.3 Combined rheumatic disorders of mitral, aortic and tricuspid valves; Z86.16 Personal history of COVID-19; Z87.891 Personal history of nicotine dependence; Z79.84 Long term (current) use of oral hypoglycemic drugs; Z79.4 Long term (current) use of insulin; Z79.899 Other long term (current) drug therapy; Z83.3 Family history of diabetes mellitus; Z82.49 Family history of ischemic heart disease and other diseases of the circulatory system
CPT/HCPCS: 36415; 70496; 70498; 70551; 76775; 80053; 80307; 81001; 82948; 83036; 83605; 83735; 84100; 84443; 84484; 85025; 85610; 85730; 93005; 96375; 99285; A9270; C8929; G0378; J1815; J7030; Q9957; Q9967

== ENCOUNTER 2023-04-10 13:15 | Emergency (ER) | payer MEDICARE, SELFPAY ==
--- NOTE | ~2023-04-10 | XR_ITS ---
EXAMINATION: XR chest 2V Exam Date/Time: 04/10/2023 14:00 OPERATIONS DIRECTOR HISTORY: COUGH, FLU B +, CRACKLE SOUNDS IN LUNGS Comparison: 03/05/2022. RESULT: Lines, tubes, and devices: None. Lungs and pleura: Linear scar in the left midlung. Rounded nodular opacities in the retrocardiac milagro g. Irregular nodular opacity in the right upper lung. No focal consolidation, pleural effusion, or pn eumothorax. Cardiomediastinal silhouette: Stable. Other: No acute osseous or upper abdominal finding. IMPRESSION: Bilateral nodular pulmonary opacities, may represent foci of infection, granulomatous disease, or sum mation artifact. Malignancy could appear similarly. Recommend nonemergent but timely outpatient low-d ose noncontrast CT of the chest for further evaluation. Reviewed, dictated and finalized at [facility] K. ATIONS DIRECTOR IMPRESSION: Bilateral nodular pulmonary opacities, may represent foci of infection, granulo matous disease, or summation artifact. Malignancy could appear similarly. Recom mend nonemergent but timely outpatient low-dose noncontrast CT of the chest for further evaluation.
--- NOTE | 2023-04-10 13:19 | ED.URI ---
HPI - URI/Sore Throat General Chief Complaint: Upper Respiratory Infection Stated Complaint: sore throat Time Seen by Provider: 04/10/23 13:20 Source: patient Mode of arrival: ambulatory Limitations: no limitations History of Present Illness HPI Narrative: Vinayak is a 77-year-old male patient presenting to the clinic today with complaints of a sore throat, body aches, cough x 6 days. He reports no known fever or chills. States cough is productive at times. Blood pressure is elevated in the clinic today. Has not taken his blood pressure medications today. He denies any dizziness, headache, visual changes, shortness breath, or chest pain. MD elicited complaint: sore throat and nasal congestion Related Data Home Medications Medication Instructions Recorded Confirmed docusate sodium 100 mg capsule 100 mg PO DAILY PRN Constipation 08/07/21 12/22/22 (Colace) Allergies Allergy/AdvReac Type Severity Reaction Status Date / Time No Known Allergies Allergy Verified 12/22/22 13:03 Review of Systems Review of Systems: Pertinent positives per HPI. Patient denies any fever, chills, rash, headache, visual changes, dizziness,shortness of breath, chest pain, palpitations, nausea, vomiting, diarrhea, constipation, abdominal pain, or any urinary issues. [facility] Past Medical History Medical History Anemia of chronic disease Aortic atherosclerosis Noted on CT in 10/2011. Chronic kidney disease, stage 4 (severe) Creatinine ranges between 2.10 and 2.60. COVID-19 (12/2020) Hospitalized at that time with pneumonia. Hypertension Insulin dependent type 2 diabetes mellitus Hemoglobin A1c was 8.5% in May 2021. Mixed hyperlipidemia Occlusion and stenosis of left carotid artery 50% stenosis on ultrasound in 2014. Surgical History Surgical History History of appendectomy History of colonoscopy (08/04/15) Revealed internal hemorrhoids. Family History Family History Father Diabetes mellitus Hypertension Social History Social History Social History: he is and Lives with his in [place]. 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 He smoked a pack of cigarettes a day for 10 years and quit about 50 years ago. No alcohol or illicit substance use. He designates his , Denise Chen, as his surrogate decision maker. code status full code Smoking packs per day: 0.5 Smoking cigarettes per day: 10.0 Years smoked: 10 Smoking pack-years: 5.00 Smoking status: Former smoker Alcohol intake: never Substance use: never Substance use type: does not use Lack of Transportation: No Lack of Food: Never True Current Housing: I Have Housing Concerned About Future Housing: No Difficulty Paying Gas/Electric Bills: No Difficulty Paying for Meds: No Currently Unemployed: No Education: High School Diploma/GED Difficulty w/ Childcare or Family Care: No Living arrangements: with family Occupation/Education: retired Gender identity (if verbalized by the patient): Male Spiritual care concerns: No Agree to blood products: Yes Comments At the time of my signature, I reviewed and agree with the nursing past medical, surgical, social, and family history. There is no relevant family history pertinent to the patient complaint. Exam Narrative: General: Well-developed, well nourished, in no apparent distress Head: Normocephalic, atraumatic Eyes: Pupils equally round and reactive to light bilaterally, EOM intact, sclera and conjunctive clear, no discharge, lids normal Ears: TMs intact and congested, ear canals clear, no drainage, grossly hearing normal. Nose: Nares patent, clear nasal discharge, no inflammation, no sin
[2023-04-10 13:34] VITALS: BP 196/77; PULSE 86; RESP 18; TEMP 36.9; O2SAT 95
== END 2023-04-10 14:35 | disposition home or self-care (01) ==
PROVIDERS: Emergency Provider Nurse Practitioner Family; PCP Family Medicine Adolescent Medicine
DX: J10.1 Influenza due to other identified influenza virus with other respiratory manifestations (principal); R91.1 Solitary pulmonary nodule; E11.22 Type 2 diabetes mellitus with diabetic chronic kidney disease; I12.9 Hypertensive chronic kidney disease with stage 1 through stage 4 chronic kidney disease, or unspecified chronic kidney disease; N18.4 Chronic kidney disease, stage 4 (severe); Z20.822 Contact with and (suspected) exposure to COVID-19; Z87.891 Personal history of nicotine dependence
CPT/HCPCS: 71046; 87081; 87426; 87804; 87880; 99213; C9803; G0463

== ENCOUNTER 2023-10-26 10:14 | Emergency (ER) | payer MEDICARE, SELFPAY ==
--- NOTE | ~2023-10-26 | CT_ITS ---
EXAMINATION: CT brain wo con DATE: 10/26/2023 12:57 INDICATION: Head injury TECHNIQUE: Computed tomography (CT) of the head was performed without intravenous contrast. Sagittal and coronal reconstructions were performed. The mA was adjusted according to patient size. Iterative reconstruction technique was employed. The dose-length product was 681.00 mGy-cm. COMPARISON: MR dated 06/12/2022 FINDINGS: No fracture. No acute intracranial hemorrhage, acute infarction or abnormal extra axial fluid collect ion. There is mild scattered white matter hypoattenuation consistent with chronic small vessel ischem ic disease. Symmetric prominence of the sulci consistent with mild to moderate age-appropriate diffus e cerebral volume loss. Ventricles are normal and symmetric. No mass/mass effect. Mild mucosal thicke isa the paranasal sinuses with small mucous retention cyst in the left sphenoid and bilateral maxill joselyn sinuses. The orbits and mastoid air cells are normal. IMPRESSION: 1. No fracture or acute intracranial process. 2. Age-related changes including mild to moderate diffuse volume loss and mild scattered white matter hypoattenuation consistent with chronic small vessel ischemic disease. Reviewed, dictated and finalized at location A. IMPRESSION: 1. No fracture or acute intracranial process. 2. Age-related changes including mild to moderate diffuse volume loss and mild scattered white matter hypoattenuation consistent with chronic small vessel isc hemic disease.
[2023-10-26 10:55] VITALS: BP 159/59; PULSE 65; RESP 16; TEMP 36.6; O2SAT 98
--- NOTE | 2023-10-26 10:59 | ECG_ITS ---
Test Date: 2023-10-26 11:01:56 Measurements Intervals [place] Rate: 64 P: -6 SC: 127 QRS: -58 QRSD: 135 T: 59 QT: 414 QTc: 428 Interpretive Statements SINUS RHYTHM RIGHT BUNDLE BRANCH BLOCK LEFT ANTERIOR FASCICULAR BLOCK BASELINE ARTIFACT- I, II, AVR, AVL ABNORMAL ECG No previous ECG available for comparison Electronically Signed On 10-26-2023 17:23:37 CDT by Sebastien Giron D.O.
[2023-10-26] MEDS: SODIUM CHLORIDE 0.9% IV 1,000 ML 999 ML IV CONT (13:24)
[2023-10-26 13:44] LABS: Basophils Absolute Auto 0.1 K/mm3 (0.0-0.1); Basophils Percent Auto 0.9 % (0.2-1.2); Eosinophils Absolute Auto 0.2 K/mm3 (0-0.3); Eosinophils Percent Auto 1.6 % (0-4.4); Hematocrit 30.5 % (42.0-52.0); Hemoglobin 9.6 g/dL (14.0-18.0); Immature Granulocyte Absolute 0.05 K/mm3 (0.00-0.031); Immature Granulocyte Percent A 0.5 % (0-0.5); Lymphocytes Absolute Auto 1.27 K/mm3 (0.9-3.2); Lymphocytes Percent Auto 13.8 % (18.3-44.2); Mean Corpuscular HGB Conc 31.5 g/dl (32-36); Mean Corpuscular Hemoglobin 30.1 pg (26-34); Mean Corpuscular Volume 95.6 fl (80-100); Mean Platelet Volume 11.8 fl (7.4-10.4); Monocytes Percent Auto 10.5 % (2.6-8.5); Neutrophils Absolute Auto 6.7 K/mm3 (1.3-6.7); Neutrophils Percent Auto 72.7 % (45.5-73.1); Platelet Count Result 331 k/mm3 (150-375); Red Blood Count 3.19 M/mm3 (4.6-6.20); Red Cell Distribution Width 13.3 % (11.5-14.5); White Blood Count 9.2 K/mm3 (4.5-10.0)
[2023-10-26 13:47] VITALS: BP 182/75; PULSE 64; RESP 17; O2SAT 95
[2023-10-26 14:04] LABS: Alanine Aminotransferase 22 U/L (6-50); Albumin Level 3.9 g/dL (3.5-5.1); Alkaline Phosphatase 96 U/L (38-126); Anion Gap 9 mmol/L (4-12); Aspartate Amino Transferase 24 U/L (17-59); Bilirubin,Total 0.5 mg/dL (0.2-1.3); Blood Urea Nitrogen 39 mg/dL (9-20); Carbon Dioxide 23 mmol/L (22-30); Chloride 111 mmol/L (98-107); Estimated Glomerular Filt Rate 19; Glucose 58 mg/dL (65-110); Potassium 5.2 mmol/L (3.4-5.0); Sodium 143 mmol/L (137-145)
--- NOTE | 2023-10-26 14:21 | ED.GENADULT ---
HPI - General Adult General Chief complaint: Dizziness Stated complaint: SWEATING,LIGHTHEADED AND DIZZY X4D Time Seen by Provider: 10/26/23 12:34 History of Present Illness HPI narrative: Patient is a 77-year-old male who presents ER with reports of feeling lightheaded and dizzy. This has been occurring each night at 3:00 a.m. for last 4 nights. He gets sweaty with the dizziness. When he eats crackers and drinks juice he gets better. He has not checked his blood sugar. He reports he has continued taking his Lantus. Reports normal eating. No chest pain or chest pressure. No shortness of breath. Feels normal during the day and symptoms only occur at night. Related Data Home Medications Medication Instructions Recorded Confirmed docusate sodium 100 mg capsule 100 mg PO DAILY PRN Constipation 08/07/21 12/22/22 (Colace) Allergies Allergy/AdvReac Type Severity Reaction Status Date / Time No Known Allergies Allergy Verified 04/12/23 14:54 Review of Systems Review of Systems: All systems reviewed & are unremarkable except as noted in HPI and below Constitutional: Constitutional: Reports no additional constitutional complaints Cardiovascular: Cardiovascular: Reports no additional cardiovascular complaints Respiratory: Respiratory: Reports no additional respiratory complaints Gastrointestinal: Gastrointestinal: Reports no additional gastrointestinal complaints Musculoskeletal: Musculoskeletal: Reports no additional musculoskeletal complaints Neurologic: Reports dizziness, Denies headache(s), Denies focal weakness and Denies numbness PMFSH Past Medical History Medical History Anemia of chronic disease Aortic atherosclerosis Noted on CT in 10/2011. Chronic kidney disease, stage 4 (severe) Creatinine ranges between 2.10 and 2.60. COVID-19 (12/2020) Hospitalized at that time with pneumonia. Hypertension Insulin dependent type 2 diabetes mellitus Hemoglobin A1c was 8.5% in May 2021. Mixed hyperlipidemia Occlusion and stenosis of left carotid artery 50% stenosis on ultrasound in 2014. Surgical History Surgical History History of appendectomy History of colonoscopy (08/04/15) Revealed internal hemorrhoids. Family History Family History Father Diabetes mellitus Hypertension Social History Social History Social History: he is and Lives with his in [place]. 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 He smoked a pack of cigarettes a day for 10 years and quit about 50 years ago. No alcohol or illicit substance use. He designates his , Denise Chen, as his surrogate decision maker. code status full code Smoking packs per day: 0.5 Smoking cigarettes per day: 10.0 Years smoked: 10 Smoking pack-years: 5.00 Smoking status: Former smoker Alcohol intake: never Substance use: never Substance use type: does not use Lack of Transportation: No Lack of Food: Never True Current Housing: I Have Housing Concerned About Future Housing: No Difficulty Paying Gas/Electric Bills: No Difficulty Paying for Meds: No Currently Unemployed: No Education: High School Diploma/GED Difficulty w/ Childcare or Family Care: No Living arrangements: with family Occupation/Education: retired Gender identity (if verbalized by the patient): Male Spiritual care concerns: No Agree to blood products: Yes Exam Narrative: GENERAL: Well-appearing, well-nourished, and in no acute distress. HEAD: Normocephalic, atraumatic. ENT: Mucous membranes moist. CHEST: Clear to auscultation. No respiratory distress. HEART: Regular rate and rhythm. Normal peripheral pulses. ABDOMEN: Soft, nontender, nondist
[2023-10-26 15:06] LABS: Glucose Point of Care 69 mg/dl (65-105)
[2023-10-26 15:30] VITALS: BP 200/71; PULSE 73; RESP 13; O2SAT 98
--- NOTE | 2023-10-26 15:34 | PC.NURSE ---
Pt given 8 oz orange juice, two packages of malka crackers, and fruit cup after blood glucose reading of 69
[2023-10-26 16:44] LABS: Glucose Point of Care 158 mg/dl (65-105)
[2023-10-26 16:48] VITALS: BP 199/78; PULSE 76; RESP 18; O2SAT 98
== END 2023-10-26 16:51 | disposition home or self-care (01) ==
PROVIDERS: Emergency Provider Emergency Medicine; PCP Family Medicine Adolescent Medicine
DX: E11.649 Type 2 diabetes mellitus with hypoglycemia without coma (principal); I12.9 Hypertensive chronic kidney disease with stage 1 through stage 4 chronic kidney disease, or unspecified chronic kidney disease; E11.22 Type 2 diabetes mellitus with diabetic chronic kidney disease; N18.4 Chronic kidney disease, stage 4 (severe); I70.0 Atherosclerosis of aorta; I65.22 Occlusion and stenosis of left carotid artery; E78.2 Mixed hyperlipidemia; D63.8 Anemia in other chronic diseases classified elsewhere; Z86.16 Personal history of COVID-19; Z87.01 Personal history of pneumonia (recurrent); Z87.891 Personal history of nicotine dependence; Z79.82 Long term (current) use of aspirin; Z79.4 Long term (current) use of insulin; Z79.899 Other long term (current) drug therapy
CPT/HCPCS: 36415; 70450; 80053; 82948; 85025; 93005; 96360; 99284; J7030